=== PATIENT | male | born 1940 | race Caucasian/White ===

== ENCOUNTER 2017-10-23 15:39 | Inpatient (IN) ==
[2017-10-23] MEDS ORDERED: Piperacillin/Tazobactam 3.375 GM in 0.9 % Sodium Chloride Mini Bag 100 ML IVPB ONE (15:50)
[2017-10-23] MEDS ORDERED: Levofloxacin 750 MG/150 ML 750 MG/150 ML BAG IVPB ONE (15:50)
[2017-10-23] MEDS ORDERED: 0.9 % Sodium Chloride 1,000 ML IVC ONE (15:56)
[2017-10-23] MEDS ORDERED: Aspirin 81 MG TAB.CHEW PO STA (15:56)
[2017-10-23] MEDS ORDERED: Ondansetron 4 MG/2 ML VIAL IVP PRN (15:56)
[2017-10-23] MEDS ORDERED: Ipratropium/Albuterol Neb 3 ML IH ONE (15:57)
[2017-10-23] MEDS ORDERED: methylPREDNISolone 125 MG/2 ML VIAL IVP ONE (15:57)
--- NOTE | 2017-10-23 16:02 | Emergency Department Note ---
Disposition Clinical Impression: HCAP (healthcare-associated pneumonia), Hypoxia, COPD exacerbation, Hypercapnia Nausea & vomiting Qualifiers: Vomiting type: unspecified Vomiting Intractability: non-intractable Qualified Code(s): R11.2 - Nausea with vomiting, unspecified Disposition: Admitted As Inpatient Condition: Fair Time of Disposition: 17:38 SOB HPI - General Chief Complaint: ED Shortness of Breath/Dyspnea Stated Complaint: "fatigue,sob" Time Seen by Provider: 10/23/17 15:49 Nursing Notes Reviewed: Yes Vital Signs Reviewed: Yes - History of Present Illness Patient is a 77-year-old male who complains of difficulty in breathing worsening over the past 4 days with chest tightness. Patient is a history of COPD and was recently diagnosed with pneumonia 1 week ago during his visit with Dr. Mensah of pulmonology. Patient's stated that patient improved for a few days but then started to decline. He has had to increase his home O2 usage from 3 L which is his norm to 5 L. Patient presented to today was hypoxic with O2 sat of 83% on 3 L supplemental O2. Patient is a history of CABG, and recent prostate surgery 2 months ago. - Related Data Home Medications Medication Instructions Recorded Confirmed Atorvastatin [Lipitor] 40 mg PO DAILY 05/13/15 10/23/17 Carvedilol [Coreg] 25 mg PO BID 05/13/15 10/23/17 Furosemide [Lasix] 20 mg PO DAILY 05/13/15 10/23/17 Gabapentin [Neurontin] 600 mg PO HS 05/13/15 10/23/17 Glimepiride [Amaryl] 4 mg PO BID 05/13/15 10/23/17 Hydrocodone/Acetaminophen [[place] 1 tab PO Q8H PRN 05/13/15 10/23/17 7.5-325 Tablet] Losartan [Cozaar] 12.5 mg PO QMWF 05/13/15 10/23/17 Metformin HCl [Glucophage Xr] 500 mg PO BID 05/13/15 10/23/17 Omeprazole [PriLOSEC] 40 mg PO DAILY 05/13/15 10/23/17 amLODIPine [Norvasc] 5 mg PO DAILY 05/13/15 10/23/17 Oxygen 3 l NS AD 07/06/15 10/23/17 Albuterol Sulfate [Albuterol 2 puff IH Q4HR PRN 05/31/17 10/23/17 Inhaler] Budesonide Neb [Pulmicort Neb] 0.5 mg IH BIDR 05/31/17 10/23/17 Ferrous Sulfate [Iron] 325 mg PO DAILY 05/31/17 10/23/17 Arformoterol Tartrate [Brovana] 15 mcg IH BID 10/23/17 10/23/17 Guaifenesin [Mucinex] 1,200 mg PO BID 10/23/17 10/23/17 Allergies Allergy/AdvReac Type Severity Reaction Status Date / Time No Known Allergies Allergy Verified 10/23/17 15:49 All systems ED: reviewed and negative except as stated. Review of Systems: As Per HPI Constitutional: Reports: chills. Denies: fever ENT ED: Reports: congestion Cardiovascular: Denies: chest pain, palpitations Respiratory: Reports: cough, dyspnea Gastrointestinal: Reports: nausea, vomiting. Denies: abdominal pain Musculoskeletal: Denies: back pain Endocrine: Reports: fatigue Past Medical History - Past Medical History Attestation: Yes The following information was validated with the patient. Source: patient, nursing notes reviewed Medical history: Reports: arthritis, COPD, diabetes, GERD, hypertension, TIA Surgical history: Reports: coronary bypass (CABG) Psychiatric history: Reports: depression - Social History Smoking Status: Former smoker Smokeless Tobacco Status: No Alcohol use: Reports: none Drug use: Reports: none Physical Exam Vital Signs Temperature 98.0 F 10/23/17 15:41 Pulse Rate 86 10/23/17 15:41 Respiratory Rate 24 10/23/17 15:41 Blood Pressure 167/93 10/23/17 15:41 O2 Sat by Pulse Oximetry 83 10/23/17 15:41 Temperature 98.0 F 10/23/17 15:48 Pulse Rate 86 10/23/17 15:48 Respiratory Rate 24 10/23/17 15:48 Blood Pressure 167/93 10/23/17 15:48 O2 Sat by Pulse Oximetry 83 10/23/17 15:48 Oxygen Delivery Oxygen Delivery Nasal Cannula CONSTITUTIONAL: Ill almost toxic-appearing patient in acute distress being short of breath presents alert and wanted 3. Patient was placed on supplemental O2 6 L/m because of an O2 saturation of 83% on 3 L. O2 sats improved and currently 92% HEAD: Normocephalic; atraumatic EYES: PERRL, no scleral icterus NOSE: The nose is normal in appearance without rhinorrhea NECK: No JVD or distended neck veins RESP: Diminished lung sounds on the right and rhonchi and rales left lung base CARD: Regular rhythm, without murmurs, rub or gallop ABD: Non-distended; non-tender, soft, without rigidity, rebound or guarding,no pulsatile mass CHEST: No pain with palpation SKIN: Normal for age and race; warm and dry without diaphoresis ; no apparent lesions EXTREMITIES: Pulses are 2 plus and equal times 4 extremities, no peripheral edema or calf muscle pain Course - Reevaluation(s) Reevaluation #1: Lab called critical high PCO2 83.6 Time: 16:26 Time: 17:38 - Consultations Consultation #1: Dr. Carlson the hospitalist as accepted patient for admission in stable condition. Time: 17:38 Vital Signs Temperature 98.0 F 10/23/17 15:41 Pulse Rate 86 10/23/17 15:41 Respiratory Rate 24 10/23/17 15:41 Blood Pressure 167/93 10/23/17 15:41 O2 Sat by Pulse Oximetry 83 10/23/17 15:41 Temperature 98.0 F 10/23/17 15:48 Pulse Rate 70 10/23/17 17:48 Respiratory Rate 18 10/23/17 18:48 Blood Pressure 160/80 10/23/17 18:48 O2 Sat by Pulse Oximetry 96 10/23/17 17:48 Oxygen Delivery Oxygen Delivery Nasal Cannula Shortness of Breath/Dyspnea - [facility] Narrative Medical decision making narrative: Patient presents with hypoxia and difficulty in breathing and current COPD exacerbation from possible underlying pneumonia. Patient is currently a HCAP due to recent hospitalization back in July for surgery on his prostate. Patient has failed outpatient treatment on azithromycin, with worsening breathing issues today. Patient's O2 saturation improved as well as a breathing after DuoNeb therapy, and also received 125 IV methylprednisolone. Patient's VBG reflected hypercapnia with an increase in PCO2 greater than the allowable upper limit of normal or a bicarbonate of 45, current PCO2 is 85. The rest of patient's labs were clinically unremarkable for any elevation of WBC, elevation of creatinine. Chest x-ray appears to have worsening consolidation in left lower lung area when compared to previous chest x-ray per my interpretation of patient's x-ray. Read per radiology states: IMPRESSION: No definite acute abnormality. Borderline pulmonary vascular congestion. Patient was started on vancomycin, levofloxacin, and Zosyn IV to cover for a HCAP, with hypoxia and hypercapnia with COPD exacerbation. Patient symptoms have improved but is still not back to his baseline of 3 L via nasal cannula for which he uses at home. Is currently utilizing 6 L/m to maintain her O2 sat duration of 96%. Patient understands and agrees to treatment plan for admission. Dr. Carlson the hospitalist as accepted patient for admission in stable condition. - Lab Data Lab results reviewed: Yes I reviewed the patient's lab results. Lab results narrative: Short CBC 10/23/17 Range/Units 16:04 WBC 10.0 (4.3-11.1) K/mcL Hgb 13.6 (12.9-16.9) g/dL Hct 45.2 (37.5-50.1) % Plt Count 186 (140-400) K/mcL Neutrophils # 7.1 (1.6-8.9) K/mcL BMP 10/23/17 Range/Units 16:04 Sodium 145 (136-145) mEq/L Potassium 4.6 (3.5-5.1) mEq/L Chloride 97 L (98-107) mEq/L Carbon Dioxide 44 H* (23-29) mEq/L BUN 24 H (8-23) mg/dL Creatinine 1.28 (0.70-1.30) mg/dL Glucose 129 H (70-105) mg/dL Calcium 9.6 (8.6-10.3) mg/dL Cardiac Enzymes 10/23/17 Range/Units 16:04 Troponin I 0.03 (< 0.04) ng/mL Urine 10/23/17 Range/Units 16:04 Urine Color Yellow (Yellow) Urine Clarity Clear (Clear) Urine pH 6.5 (5.0-8.0) pH Units Ur Specific [place] 1.011 (1.010-1.025) Urine Protein Trace (Neg-Trace) mg/dL Urine Glucose (UA) Normal (Normal) mg/dL Result diagrams: 10/23/17 16:04 10/23/17 16:04 Lab Results 10/23/17 10/23/17 10/23/17 Range/Units 16:04 16:04 16:04 WBC 10.0 (4.3-11.1) K/mcL RBC 4.66 (4.19-5.50) M/mcL Hgb 13.6 (12.9-16.9) g/dL Hct 45.2 (37.5-50.1) % MCV 97.0 (83.0-100.0) fL MCH 29.2 (28.0-33.3) pg MCHC 30.1 L (31.6-35.5) g/dL RDW 12.5 (11.5-14.5) % Plt Count 186 (140-400) K/mcL MPV 10.8 (9.4-12.4) fL Immature Gran % 1.0 (0-4) % Seg Neutrophils % 71.2 % Lymphocytes % 12.4 % Monocytes % 9.9 % Eosinophils % 4.8 % Basophils % 0.7 % Neutrophils # 7.1 (1.6-8.9) K/mcL Lymphocytes # 1.2 (0.6-4.6) K/mcL Monocytes # 1.0 (0.0-1.3) K/mcL Eosinophils # 0.5 (0.0-0.6) K/mcL Basophils # 0.1 (0.0-0.2) K/mcL VBG pH (7.32-7.42) pH Units VBG pCO2 (41-51) mmHg VBG pO2 (25-50) mmHg VBG HCO3 (21-27) mEq/L Sodium 145 (136-145) mEq/L Potassium 4.6 (3.5-5.1) mEq/L Chloride 97 L (98-107) mEq/L Carbon Dioxide 44 H* (23-29) mEq/L BUN 24 H (8-23) mg/dL Creatinine 1.28 (0.70-1.30) mg/dL Est GFR ( Amer) > 60 (> 60) Est GFR (Non-Af Amer) 55 L (> 60) BUN/Creatinine Ratio 19 (6-26) Glucose 129 H (70-105) mg/dL Calculated Osmolality 306 H (280-300) Lactic Acid (0.5-2.2) mmol/L Calcium 9.6 (8.6-10.3) mg/dL Phosphorus 2.2 L (2.7-4.5) mg/dL Magnesium 1.4 L (1.6-2.6) mg/dL Troponin I 0.03 (< 0.04) ng/mL Urine Color Yellow (Yellow) Urine Clarity Clear (Clear) Urine pH 6.5 (5.0-8.0) pH Units Ur Specific [place] 1.011 (1.010-1.025) Urine Protein Trace (Neg-Trace) mg/dL Urine Glucose (UA) Normal (Normal) mg/dL Urine Ketones Negative (Negative) mg/dL Urine Blood Negative (Negative) Urine Nitrite Negative (Negative) Urine Bilirubin Negative (Negative) Urine Urobilinogen Normal (Normal) mg/dL Ur Leukocyte Esterase Negative (Negative) Urine Microscopic RBC 0-3 (0-3) per hpf Urine Microscopic WBC 0-3 (0-3) per hpf Ur Squamous Epith Cells None Seen (None-Few) per lpf Urine Bacteria None Seen (None-Few) per hpf Hyaline Casts None Seen (None-Few) per lpf Ur Culture Indicated? NO (NO) Person Notif of Crit 10/23/17 10/23/17 Range/Units 16:04 16:20 WBC (4.3-11.1) K/mcL RBC (4.19-5.50) M/mcL Hgb (12.9-16.9) g/dL Hct (37.5-50.1) % MCV (83.0-100.0) fL MCH (28.0-33.3) pg MCHC (31.6-35.5) g/dL RDW (11.5-14.5) % Plt Count (140-400) K/mcL MPV (9.4-12.4) fL Immature Gran % (0-4) % Seg Neutrophils % % Lymphocytes % % Monocytes % % Eosinophils % % Basophils % % Neutrophils # (1.6-8.9) K/mcL Lymphocytes # (0.6-4.6) K/mcL Monocytes # (0.0-1.3) K/mcL Eosinophils # (0.0-0.6) K/mcL Basophils # (0.0-0.2) K/mcL VBG pH 7.33 (7.32-7.42) pH Units VBG pCO2 85 H* (41-51) mmHg VBG pO2 81 H (25-50) mmHg VBG HCO3 45 H (21-27) mEq/L Sodium (136-145) mEq/L Potassium (3.5-5.1) mEq/L Chloride (98-107) mEq/L Carbon Dioxide (23-29) mEq/L BUN (8-23) mg/dL Creatinine (0.70-1.30) mg/dL Est GFR ( Amer) (> 60) Est GFR (Non-Af Amer) (> 60) BUN/Creatinine Ratio (6-26) Glucose (70-105) mg/dL Calculated Osmolality (280-300) Lactic Acid 1.2 (0.5-2.2) mmol/L Calcium (8.6-10.3) mg/dL Phosphorus (2.7-4.5) mg/dL Magnesium (1.6-2.6) mg/dL Troponin I (< 0.04) ng/mL Urine Color (Yellow) Urine Clarity (Clear) Urine pH (5.0-8.0) pH Units Ur Specific [place] (1.010-1.025) Urine Protein (Neg-Trace) mg/dL Urine Glucose (UA) (Normal) mg/dL Urine Ketones (Negative) mg/dL Urine Blood (Negative) Urine Nitrite (Negative) Urine Bilirubin (Negative) Urine Urobilinogen (Normal) mg/dL Ur Leukocyte Esterase (Negative) Urine Microscopic RBC (0-3) per hpf Urine Microscopic WBC (0-3) per hpf Ur Squamous Epith Cells (None-Few) per lpf Urine Bacteria (None-Few) per hpf Hyaline Casts (None-Few) per lpf Ur Culture Indicated? (NO) Person Notif of Crit DR GALVAN - Radiology Data Radiology results reviewed: Yes I reviewed the patient's radiology results. Chest X-Ray 10/23/17 15:51 IMPRESSION: No definite acute abnormality. Borderline pulmonary vascular congestion. D/ / Coy Curry MD / Coy Curry MD Interpreting Provider: Coy Curry MD - EKG Data EKG attestation: Yes I reviewed and interpreted this EKG. EKG results narrative: EKG taken to October 2017 1548 hrs. shows a sinus rhythm at a rate of 94 beats minute no acute ST elevations or depressions in any leads, no QRS widening or QT prolongation. When compared to previous EKG taken 09/15/2017, both EKGs are nonischemic
[2017-10-23 16:18] LABS: Basophils # 0.1 K/mcL (0.0-0.2); Basophils % 0.7 %; Eosinophils # 0.5 K/mcL (0.0-0.6); Eosinophils % 4.8 %; Hematocrit 45.2 % (37.5-50.1); Hemoglobin 13.6 g/dL (12.9-16.9); Lymphocytes # 1.2 K/mcL (0.6-4.6); Lymphocytes % 12.4 %; Mean Corpuscular HGB Conc 30.1 g/dL (31.6-35.5); Mean Corpuscular Hemoglobin 29.2 pg (28.0-33.3); Mean Platelet Volume 10.8 fL (9.4-12.4); Monocytes % 9.9 %; Neutrophils # 7.1 K/mcL (1.6-8.9); Platelet Count 186 K/mcL (140-400); Red Blood Count 4.66 M/mcL (4.19-5.50); Red Cell Distribution Width 12.5 % (11.5-14.5); Segmented Neutrophils % 71.2 %
[2017-10-23 16:21] LABS: Bilirubin,Urine Negative (Negative); Blood,Urine Negative (Negative); Clarity,Urine Clear (Clear); Color,Urine Yellow (Yellow); Glucose,Urine (UA) Normal (Normal); Ketones,Urine Negative (Negative); Leukocyte Esterase,Urine Negative (Negative); Nitrite,Urine Negative (Negative); PH,Urine 6.5 pH Units (5.0-8.0); Protein,Urine Trace mg/dL (Neg-Trace); Specific Gravity,Urine 1.011 (1.010-1.025); Urobilinogen,Urine Normal (Normal)
[2017-10-23 16:24] LABS: Bacteria,Urine None Seen per hpf (None-Few); Hyaline Casts,Urine None Seen per lpf (None-Few); RBC,Urine 0-3 per hpf (0-3); Squamous Epithelial Cell,Urine None Seen per lpf (None-Few); WBC,Urine 0-3 per hpf (0-3)
[2017-10-23 16:29] LABS: VBG HCO3 45 mEq/L (21-27); VBG PCO2 85 mmHg (41-51); VBG PH 7.33 pH Units (7.32-7.42); VBG PO2 81 mmHg (25-50)
[2017-10-23 16:43] LABS: Troponin I 0.03 ng/mL (< 0.04)
[2017-10-23 16:49] LABS: BUN/Creatinine Ratio 19 (6-26); Blood Urea Nitrogen 24 mg/dL (8-23); Calcium 9.6 mg/dL (8.6-10.3); Carbon Dioxide 44 mEq/L (23-29); Chloride 97 mEq/L (98-107); Glucose 129 mg/dL (70-105); Magnesium 1.4 mg/dL (1.6-2.6); Osmolality,Calculated 306 (280-300); Phosphorous 2.2 mg/dL (2.7-4.5); Potassium 4.6 mEq/L (3.5-5.1); Sodium 145 mEq/L (136-145); eGFR For African Americans > 60 (> 60); eGFR For Non-African Americans 55 (> 60)
--- NOTE | 2017-10-23 18:17 | Emergency Department Note ---
Disposition Clinical Impression: HCAP (healthcare-associated pneumonia), Hypoxia, COPD exacerbation, Hypercapnia Nausea & vomiting Qualifiers: Vomiting type: unspecified Vomiting Intractability: non-intractable Qualified Code(s): R11.2 - Nausea with vomiting, unspecified Disposition: Admitted As Inpatient Condition: Fair General Adult HPI - General Chief complaint: ED Shortness of Breath/Dyspnea Stated complaint: "fatigue,sob" Time Seen by Provider: 10/23/17 15:49 - History of Present Illness Pain Scale: 0 - Related Data Home Medications Medication Instructions Recorded Confirmed Atorvastatin [Lipitor] 40 mg PO DAILY 05/13/15 10/23/17 Carvedilol [Coreg] 25 mg PO BID 05/13/15 10/23/17 Furosemide [Lasix] 20 mg PO DAILY 05/13/15 10/23/17 Gabapentin [Neurontin] 600 mg PO HS 05/13/15 10/23/17 Glimepiride [Amaryl] 4 mg PO BID 05/13/15 10/23/17 Hydrocodone/Acetaminophen [[place] 1 tab PO Q8H PRN 05/13/15 10/23/17 7.5-325 Tablet] Losartan [Cozaar] 12.5 mg PO QMWF 05/13/15 10/23/17 Metformin HCl [Glucophage Xr] 500 mg PO BID 05/13/15 10/23/17 Omeprazole [PriLOSEC] 40 mg PO DAILY 05/13/15 10/23/17 amLODIPine [Norvasc] 5 mg PO DAILY 05/13/15 10/23/17 Oxygen 3 l NS AD 07/06/15 10/23/17 Albuterol Sulfate [Albuterol 2 puff IH Q4HR PRN 05/31/17 10/23/17 Inhaler] Budesonide Neb [Pulmicort Neb] 0.5 mg IH BIDR 05/31/17 10/23/17 Ferrous Sulfate [Iron] 325 mg PO DAILY 05/31/17 10/23/17 Arformoterol Tartrate [Brovana] 15 mcg IH BID 10/23/17 10/23/17 Guaifenesin [Mucinex] 1,200 mg PO BID 10/23/17 10/23/17 Allergies Allergy/AdvReac Type Severity Reaction Status Date / Time No Known Allergies Allergy Verified 10/23/17 15:49 Constitutional: Reports: chills. Denies: fever ENT ED: Reports: congestion Cardiovascular: Denies: chest pain, palpitations Respiratory: Reports: cough, dyspnea Gastrointestinal: Reports: nausea, vomiting. Denies: abdominal pain Musculoskeletal: Denies: back pain Endocrine: Reports: fatigue Past Medical History - Past Medical History Medical history: Reports: arthritis, COPD, diabetes, GERD, hypertension, TIA Surgical history: Reports: coronary bypass (CABG) Psychiatric history: Reports: depression - Social History Smoking Status: Former smoker Smokeless Tobacco Status: No Alcohol use: Reports: none Drug use: Reports: none Course Vital Signs Temperature 98.0 F 10/23/17 15:41 Pulse Rate 86 10/23/17 15:41 Respiratory Rate 24 10/23/17 15:41 Blood Pressure 167/93 10/23/17 15:41 O2 Sat by Pulse Oximetry 83 10/23/17 15:41 Temperature 98.0 F 10/23/17 15:48 Pulse Rate 70 10/23/17 17:48 Respiratory Rate 18 10/23/17 17:48 Blood Pressure 160/87 10/23/17 17:48 O2 Sat by Pulse Oximetry 96 10/23/17 17:48 Oxygen Delivery Oxygen Delivery Nasal Cannula Medical Decision Making - Lab Data Result diagrams: 10/23/17 16:04 10/23/17 16:04 Lab Results 10/23/17 10/23/17 10/23/17 Range/Units 16:04 16:04 16:04 WBC 10.0 (4.3-11.1) K/mcL RBC 4.66 (4.19-5.50) M/mcL Hgb 13.6 (12.9-16.9) g/dL Hct 45.2 (37.5-50.1) % MCV 97.0 (83.0-100.0) fL MCH 29.2 (28.0-33.3) pg MCHC 30.1 L (31.6-35.5) g/dL RDW 12.5 (11.5-14.5) % Plt Count 186 (140-400) K/mcL MPV 10.8 (9.4-12.4) fL Immature Gran % 1.0 (0-4) % Seg Neutrophils % 71.2 % Lymphocytes % 12.4 % Monocytes % 9.9 % Eosinophils % 4.8 % Basophils % 0.7 % Neutrophils # 7.1 (1.6-8.9) K/mcL Lymphocytes # 1.2 (0.6-4.6) K/mcL Monocytes # 1.0 (0.0-1.3) K/mcL Eosinophils # 0.5 (0.0-0.6) K/mcL Basophils # 0.1 (0.0-0.2) K/mcL VBG pH (7.32-7.42) pH Units VBG pCO2 (41-51) mmHg VBG pO2 (25-50) mmHg VBG HCO3 (21-27) mEq/L Sodium 145 (136-145) mEq/L Potassium 4.6 (3.5-5.1) mEq/L Chloride 97 L (98-107) mEq/L Carbon Dioxide 44 H* (23-29) mEq/L BUN 24 H (8-23) mg/dL Creatinine 1.28 (0.70-1.30) mg/dL Est GFR ( Amer) > 60 (> 60) Est GFR (Non-Af Amer) 55 L (> 60) BUN/Creatinine Ratio 19 (6-26) Glucose 129 H (70-105) mg/dL Calculated Osmolality 306 H (280-300) Lactic Acid (0.5-2.2) mmol/L Calcium 9.6 (8.6-10.3) mg/dL Phosphorus 2.2 L (2.7-4.5) mg/dL Magnesium 1.4 L (1.6-2.6) mg/dL Troponin I 0.03 (< 0.04) ng/mL Urine Color Yellow (Yellow) Urine Clarity Clear (Clear) Urine pH 6.5 (5.0-8.0) pH Units Ur Specific [place] 1.011 (1.010-1.025) Urine Protein Trace (Neg-Trace) mg/dL Urine Glucose (UA) Normal (Normal) mg/dL Urine Ketones Negative (Negative) mg/dL Urine Blood Negative (Negative) Urine Nitrite Negative (Negative) Urine Bilirubin Negative (Negative) Urine Urobilinogen Normal (Normal) mg/dL Ur Leukocyte Esterase Negative (Negative) Urine Microscopic RBC 0-3 (0-3) per hpf Urine Microscopic WBC 0-3 (0-3) per hpf Ur Squamous Epith Cells None Seen (None-Few) per lpf Urine Bacteria None Seen (None-Few) per hpf Hyaline Casts None Seen (None-Few) per lpf Ur Culture Indicated? NO (NO) Person Notif of Crit 10/23/17 10/23/17 Range/Units 16:04 16:20 WBC (4.3-11.1) K/mcL RBC (4.19-5.50) M/mcL Hgb (12.9-16.9) g/dL Hct (37.5-50.1) % MCV (83.0-100.0) fL MCH (28.0-33.3) pg MCHC (31.6-35.5) g/dL RDW (11.5-14.5) % Plt Count (140-400) K/mcL MPV (9.4-12.4) fL Immature Gran % (0-4) % Seg Neutrophils % % Lymphocytes % % Monocytes % % Eosinophils % % Basophils % % Neutrophils # (1.6-8.9) K/mcL Lymphocytes # (0.6-4.6) K/mcL Monocytes # (0.0-1.3) K/mcL Eosinophils # (0.0-0.6) K/mcL Basophils # (0.0-0.2) K/mcL VBG pH 7.33 (7.32-7.42) pH Units VBG pCO2 85 H* (41-51) mmHg VBG pO2 81 H (25-50) mmHg VBG HCO3 45 H (21-27) mEq/L Sodium (136-145) mEq/L Potassium (3.5-5.1) mEq/L Chloride (98-107) mEq/L Carbon Dioxide (23-29) mEq/L BUN (8-23) mg/dL Creatinine (0.70-1.30) mg/dL Est GFR ( Amer) (> 60) Est GFR (Non-Af Amer) (> 60) BUN/Creatinine Ratio (6-26) Glucose (70-105) mg/dL Calculated Osmolality (280-300) Lactic Acid 1.2 (0.5-2.2) mmol/L Calcium (8.6-10.3) mg/dL Phosphorus (2.7-4.5) mg/dL Magnesium (1.6-2.6) mg/dL Troponin I (< 0.04) ng/mL Urine Color (Yellow) Urine Clarity (Clear) Urine pH (5.0-8.0) pH Units Ur Specific [place] (1.010-1.025) Urine Protein (Neg-Trace) mg/dL Urine Glucose (UA) (Normal) mg/dL Urine Ketones (Negative) mg/dL Urine Blood (Negative) Urine Nitrite (Negative) Urine Bilirubin (Negative) Urine Urobilinogen (Normal) mg/dL Ur Leukocyte Esterase (Negative) Urine Microscopic RBC (0-3) per hpf Urine Microscopic WBC (0-3) per hpf Ur Squamous Epith Cells (None-Few) per lpf Urine Bacteria (None-Few) per hpf Hyaline Casts (None-Few) per lpf Ur Culture Indicated? (NO) Person Notif of Crit DR GALVAN Attestation Statement - Attestation Attestation: I examined this patient and my medical decision-making was reviewed with the Resident Physician. I agree with the documented findings, disposition and treatment plan as described except to the extent set forth below. Pt recently discharged with CXR finding suggestive of early pneumonia. High risk for drug-resistant bacteria, agree with broad spectrum approach pending cultures. Meets neither SIRS nor qSOFA criteria for sepsis. Dyspnea significantly improved with nebulizers. Pt has chest tightness that is present with every one of his COPD exacerbations, identical to previous symptoms, nothing different about it today. He can't recall a COPD exacerbation without chest tightness, and he says this tightness feels nothing like the discomfort he has felt when he has had angina/heart attacks in the past.
[2017-10-23] MEDS ORDERED: Ipratropium/Albuterol Neb 3 ML IH PRN (18:53)
[2017-10-23] MEDS ORDERED: *HR* HYDROcodone/Acet 7.5/325 mg TABLET PO PRN (18:53)
[2017-10-23] MEDS ORDERED: Dextrose Gel 15 GM/37.5 ML TUBE PO PRN ×4 (18:54)
[2017-10-23] MEDS ORDERED: *HR* Dextrose 50 % in Water (Syg) 50 ML SYRINGE IVP PRN (18:54)
[2017-10-23] MEDS ORDERED: D5% in Water 1,000 ML IVC PRN (18:54)
[2017-10-23] MEDS ORDERED: Naloxone 0.4 MG/ML INJ IVP PRN (18:57)
--- NOTE | 2017-10-23 19:01 | Internal Med History&Physical ---
Date of Encounter: 10/23/17 Time of Encounter: 19:10 Internal Medicine - H&P: HPI Chief complaint: Shortness of breath History of present illness: Mr. Aponte is a 77 year old male history of COPD on 3 L nasal cannula, diabetes2 , hypertension, CAD who presents with progressive shortness of breath, failed outpatient oral regimen. Admitted for COPD exacerbation with possible concern of pneumonia by the ED. Due to progressive shortness of breath worse with exertion, improved with rest, he has needed increased oxygen from 3 L to 5 L at home. He quit smoking 3 years ago. He gets winded around the house. Described low energy. Increase somnolent. In some subjective chills. He saw Dr. Cuevas this past Saturday and was started on steroids and antibiotics to no improvement. Given these, he presents to the ER. EKG personally reviewed with rate 94, normal sinus rhythm FINDINGS: Borderline pulmonary vasculature is congested. Minimal patchy atelectasis at the lung bases is noted, greater on the left. Heart and mediastinal contours stable. Previous midline sternotomy noted. No pneumothorax. No free air. XR/XR chest 1V portable IMPRESSION: No definite acute abnormality. Borderline pulmonary vascular congestion. Past Med Surg Social Fam HX - Past Medical History Medical history: arthritis, COPD, diabetes, GERD, hypertension, TIA Psychiatric history: depression - Past Surgical History Surgical History: coronary bypass (CABG) - Social History Smoking Status: Former smoker Smokeless Tobacco Status: No Alcohol use: none Drug use: none - Family History Father Adopted: No Living Status: Hx Family Cardiac Disorders: Yes Hx Family Respiratory Disorders: Yes Mother Adopted: No Living Status: Hx Family Cardiac Disorders: Yes Hx Family Respiratory Disorders: Yes Hx Family Cancer: Yes Internal Medicine - H&P: Meds Atorvastatin [Lipitor] 40 mg PO DAILY 05/13/15 [History] Carvedilol [Coreg] 25 mg PO BID 05/13/15 [History] Furosemide [Lasix] 20 mg PO DAILY 05/13/15 [History] Gabapentin [Neurontin] 600 mg PO HS 05/13/15 [History] Glimepiride [Amaryl] 4 mg PO BID 05/13/15 [History] Hydrocodone/Acetaminophen [[place] 7.5-325 Tablet] 1 tab PO Q8H PRN 05/13/15 [ History] Losartan [Cozaar] 12.5 mg PO QMWF 05/13/15 [History] Metformin HCl [Glucophage Xr] 500 mg PO BID 05/13/15 [History] Omeprazole [PriLOSEC] 40 mg PO DAILY 05/13/15 [History] amLODIPine [Norvasc] 5 mg PO DAILY 05/13/15 [History] Oxygen 3 l NS AD 07/06/15 [History] Albuterol Sulfate [Albuterol Inhaler] 2 puff IH Q4HR PRN 05/31/17 [History] Budesonide Neb [Pulmicort Neb] 0.5 mg IH BIDR 05/31/17 [History] Ferrous Sulfate [Iron] 325 mg PO DAILY 05/31/17 [History] Arformoterol Tartrate [Brovana] 15 mcg IH BID 10/23/17 [History] Guaifenesin [Mucinex] 1,200 mg PO BID 10/23/17 [History] 3 Allergy/AdvReac Type Severity Reaction Status Date / Time No Known Allergies Allergy Verified 10/23/17 15:49 All Systems PM: A 10-system review of systems was performed and is negative for pertinent findings except as documented above in the HPI. - Constitutional Vitals: Temp Pulse Resp BP Pulse Ox 98.0 F 70 18 160/80 96 10/23/17 15:48 10/23/17 17:48 10/23/17 18:48 10/23/17 18:48 10/23/17 17:48 Exam: General - AAO x 3 Psych - Appropriate affect/speech. No agitation Eyes - MADISYN. Eye lids intact. No scleral icterus Heart - Sinus. RRR. S1 and S2 present. No added HS/murmurs appreciated. No elevated JVD appreciated. Lung - decreased air entry b/l, No crackles, scant wheezes appreciated GI - Soft, non-tender. No hepatosplenomegaly/ascites. BS+ - No CVA/suprapubic tenderness or palpable bladder distension Skin - Intact. No rash/petechiae/ecchymosis. Trace bilateral lower extremity edema Internal Med - H&P Results - Labs CBC & Chem 7: 10/23/17 16:04 10/23/17 16:04 - Assessment and plan (1) COPD exacerbation Current Visit: Yes Status: Acute Assessment and plan: IV steroids, IV Levaquin, duonebs Serologies, RVP Uses 3 L nasal cannula at baseline at home (2) PNA (pneumonia) Current Visit: Yes Status: Acute Assessment and plan: The ER was concerned for pneumonia that is refractory to treatment.Reviewed chest x-ray in the ER with no definite consolidation We will start IV Levaquin for acute COPD exacerbation for now pending CT chest without contrast for definitive clarification whether he has a pneumonia We will send RVP, serologies Qualifiers: Pneumonia type: due to unspecified organism Lung location: unspecified part of lung Qualified Code(s): J18.9 - Pneumonia, unspecified organism (3) Diabetes Current Visit: No Status: Chronic Assessment and plan: We will hold metformin, continue sulfonylurea, add insulin sliding scale. We will adjust insulin sliding scale with anticipated hyperglycemia on steroids Qualifiers: Diabetes mellitus intermediate accountant insulin use: without intermediate accountant use Chronic kidney disease stage: stage 2 (mild) Qualified Code(s): E08.22 - Diabetes mellitus due to underlying condition with diabetic chronic kidney disease; N18.2 - Chronic kidney disease, stage 2 (mild); N18.2 - Chronic kidney disease, stage 2 (mild) (4) HTN (hypertension) Current Visit: Yes Status: Acute Assessment and plan: continue med Qualifiers: Hypertension type: essential hypertension Qualified Code(s): I10 - Essential (primary) hypertension - Time Spent With Patient Total time spent is greater than 50% in coordination of care (as documented) at patient's floor/unit and/or counseling patient:
[2017-10-23] MEDS: Gabapentin 300 MG CAPSULE PO SCH (20:30)
[2017-10-23] MEDS: Insulin LISPRO 300 UNITS/3 ML VIAL SQ SCH (20:30)
[2017-10-23] MEDS ORDERED: Ipratropium/Albuterol Neb 3 ML IH SCH (21:00)
[2017-10-23] MEDS ORDERED: ARFORMOTEROL TARTRATE 15 MCG IH SCH (21:00)
[2017-10-23] MEDS: Ipratropium/Albuterol Neb 3 ML IH SCH (22:15)
[2017-10-23] MEDS: Budesonide Neb 0.5 MG/2 ML IH SCH (22:15)
[2017-10-23] MEDS ORDERED: Levofloxacin 500 MG/100 ML 500 MG/100 ML BAG IVPB SCH (23:00)
[2017-10-23] MEDS: MethylPREDNISolone 40 MG/ML VIAL IVP SCH (23:57)
[2017-10-24 03:41] LABS: Basophils % 0.1 %; Hematocrit 39.8 % (37.5-50.1); Hemoglobin 12.3 g/dL (12.9-16.9); Immature Granulocytes % 0.6 % (0-4); Lymphocytes # 0.4 K/mcL (0.6-4.6); Mean Corpuscular HGB Conc 30.9 g/dL (31.6-35.5); Mean Corpuscular Hemoglobin 29.4 pg (28.0-33.3); Mean Corpuscular Volume 95.2 fL (83.0-100.0); Mean Platelet Volume 10.7 fL (9.4-12.4); Monocytes # 0.1 K/mcL (0.0-1.3); Monocytes % 0.8 %; Neutrophils # 7.3 K/mcL (1.6-8.9); Platelet Count 143 K/mcL (140-400); Red Blood Count 4.18 M/mcL (4.19-5.50); Red Cell Distribution Width 12.2 % (11.5-14.5); Segmented Neutrophils % 93.5 %
[2017-10-24] MEDS: Ipratropium/Albuterol Neb 3 ML IH SCH ×4 (04:12→22:07)
[2017-10-24 04:14] LABS: Alanine Aminotransferase 17 Units/L (7-52); Albumin 3.7 g/dL (3.5-5.7); Albumin/Globulin Ratio 1.5 (1.1-2.2); Alkaline Phosphatase 79 Units/L (34-104); Aspartate Amino Transferase 13 Units/L (13-39); BUN/Creatinine Ratio 25 (6-26); Bilirubin,Total 0.3 mg/dL (0.3-1.0); Blood Urea Nitrogen 32 mg/dL (8-23); Calcium 9.1 mg/dL (8.6-10.3); Carbon Dioxide 40 mEq/L (23-29); Chloride 96 mEq/L (98-107); Globulin 2.4 g/dL (2.4-3.5); Glucose 270 mg/dL (70-105); Osmolality,Calculated 306 (280-300); Sodium 140 mEq/L (136-145); Total Protein 6.1 g/dL (6.4-8.9); eGFR For African Americans > 60 (> 60); eGFR For Non-African Americans 56 (> 60)
[2017-10-24] MEDS: MethylPREDNISolone 40 MG/ML VIAL IVP SCH ×3 (05:24→18:20)
[2017-10-24] MEDS: *HR* Enoxaparin 40 MG/0.4 ML SYRINGE SQ SCH (05:24)
[2017-10-24] MEDS: Insulin LISPRO 300 UNITS/3 ML VIAL SQ SCH ×4 (07:50→21:50)
[2017-10-24] MEDS: Furosemide 20 MG TABLET PO SCH (07:50)
[2017-10-24] MEDS: amLODIPine 5 MG TABLET PO SCH (07:51)
[2017-10-24] MEDS: *HR* Glimepiride 4 MG TABLET PO SCH ×2 (07:51→18:27)
[2017-10-24] MEDS: Budesonide Neb 0.5 MG/2 ML IH SCH ×2 (11:14→22:07)
--- NOTE | 2017-10-24 14:08 | Internal Med Progress Note ---
Date of Encounter: 10/24/17 Time of Encounter: 11:00 - Assessment and plan (1) PNA (pneumonia) Current Visit: Yes Status: Acute Assessment and plan: RLL PNA mostly bacterial cont empirical abx Levaquin will f/u on sputum cx Qualifiers: Pneumonia type: due to unspecified organism Lung location: unspecified part of lung Qualified Code(s): J18.9 - Pneumonia, unspecified organism (2) COPD exacerbation Current Visit: Yes Status: Acute Assessment and plan: Improving will start tapering steoirds cont Duoneb Cont O2 (3) Acute on chronic respiratory failure with hypoxia Current Visit: Yes Status: Acute Assessment and plan: improving cont above care (4) Chronic respiratory failure with hypercapnia Current Visit: Yes Status: Acute Assessment and plan: reviewed his ABG from 10/16/17 and VBG from last night he does have chronic hypercapneic resp failure does get benefit with BiPAP use at night time will do over night Bipap study (5) Diabetes Current Visit: No Status: Chronic Assessment and plan: Slightly uncontrolled due to steroids Cont ISS Qualifiers: Diabetes mellitus long chain beamer insulin use: without long chain beamer use Chronic kidney disease stage: stage 2 (mild) Qualified Code(s): E08.22 - Diabetes mellitus due to underlying condition with diabetic chronic kidney disease; N18.2 - Chronic kidney disease, stage 2 (mild); N18.2 - Chronic kidney disease, stage 2 (mild) (6) HTN (hypertension) Current Visit: Yes Status: Acute Assessment and plan: Stable with home meds Qualifiers: Hypertension type: essential hypertension Qualified Code(s): I10 - Essential (primary) hypertension - Time Spent With Patient Total time spent is greater than 50% in coordination of care (as documented) at patient's floor/unit and/or counseling patient: - Subjective Interval history: Mr. Aponte is a 77 year old male history of COPD on 3 L nasal cannula, diabetes2 , hypertension, CAD who presented to ER with progressive shortness of breath, failed outpatient oral regimen. Pt stated he has been having SOB, Cough with expectoration for 5-7 days , he was taken PO abx and steroid as an out pt, felt better for a couple of days, however since last 2 days his SOB got worsened. Denied any CP now. He was required 5 lit O2 last night, however now he is at 3 lit O2. Still has moderate SOB and BURNS. - Constitutional Vitals: Temp Pulse Resp BP Pulse Ox 97.6 F 73 17 152/80 87 10/24/17 11:58 10/24/17 11:58 10/24/17 11:58 10/24/17 11:58 10/24/17 11:58 General appearance: Present: A&O X 3, no acute distress, answers questions appropriately - Head Head exam: Present: atraumatic, normal inspection - Neck Neck exam general surgery: Present: supple - Respiratory Respiratory exam: Present: decreased breath sounds, wheezes (moderate). Absent : rales, respiratory distress, rhonchi - Cardiovascular Cardiovascular exam: Present: +S1, +S2. Absent: systolic murmur, tachycardia - GI/Abdominal GI/Abdominal exam: Present: normal bowel sounds, soft. Absent: rebound, rigid, tenderness - Extremities Exam Extremities exam: Absent: calf tenderness, pedal edema, tenderness - Back Exam Back exam: Absent: CVA tenderness (L), CVA tenderness (R) - Neurological Exam Neurological exam: Present: alert, oriented X3 - Psychiatric Psychiatric exam: Present: normal affect, normal mood Internal Medicine: Result - Labs CBC & Chem 7: 10/24/17 03:11 10/24/17 03:11 Labs: Short CBC 10/24/17 Range/Units 03:11 WBC 7.8 (4.3-11.1) K/mcL Hgb 12.3 L (12.9-16.9) g/dL Hct 39.8 (37.5-50.1) % Plt Count 143 (140-400) K/mcL Neutrophils # 7.3 (1.6-8.9) K/mcL BMP 10/24/17 03:11 Sodium 140 Potassium 5.0 Chloride 96 L Carbon Dioxide 40 H* BUN 32 H Creatinine 1.26 Glucose 270 H Calcium 9.1 Liver Function 10/24/17 Range/Units 03:11 Total Bilirubin 0.3 (0.3-1.0) mg/dL AST 13 (13-39) Units/L ALT 17 (7-52) Units/L Alkaline Phosphatase 79 (34-104) Units/L Albumin 3.7 (3.5-5.7) g/dL Consult Discharge Plan - Plan Referrals: Miles Schaeffer [Primary Care Provider] -
--- NOTE | 2017-10-24 16:32 | Electrocardiograph Report ---
[place] [id number] Test Date: 2017-10-23 Pat Name: Aniket Aponte Department: 103 Room: 2A16 Gender: M Classified Advertising Manager: CARLOS ENRIQUE : 1940 Requested By: Jorge Hopson Order Number: [id number] Reading MD: Madeline Montoya Measurements Intervals [place] Rate: 94 P: 31 MS: 137 QRS: -26 QRSD: 111 T: 88 QT: 338 QTc: 389 Interpretive Statements SINUS RHYTHM MODERATE INTRAVENTRICULAR CONDUCTION DELAY [105+ ms QRS DURATION, 80+ ms Q/S IN V1/V2, NO Q AND 60+ ms R IN I/aVL/V5/V6] NONSPECIFIC ST & T-WAVE ABNORMALITY Electronically Signed On 10-24-2017 16:30:28 EDT by Madeline Montoya
[2017-10-24] MEDS: Levofloxacin 750 MG/150 ML 750 MG/150 ML BAG IVPB SCH (20:01)
[2017-10-24] MEDS: Gabapentin 300 MG CAPSULE PO SCH (20:01)
[2017-10-24] MEDS ORDERED: Levofloxacin 500 MG/100 ML 500 MG/100 ML BAG IVPB SCH (21:00)
[2017-10-25] MEDS: Ipratropium/Albuterol Neb 3 ML IH SCH ×4 (04:00→22:14)
[2017-10-25] MEDS: *HR* Enoxaparin 40 MG/0.4 ML SYRINGE SQ SCH (05:51)
[2017-10-25] MEDS: MethylPREDNISolone 40 MG/ML VIAL IVP SCH (05:52)
[2017-10-25 06:00] LABS: Basophils % 0.1 %; Hematocrit 38.4 % (37.5-50.1); Hemoglobin 12.3 g/dL (12.9-16.9); Immature Granulocytes % 0.7 % (0-4); Lymphocytes # 0.6 K/mcL (0.6-4.6); Lymphocytes % 4.2 %; Mean Corpuscular Hemoglobin 28.9 pg (28.0-33.3); Mean Corpuscular Volume 90.4 fL (83.0-100.0); Mean Platelet Volume 10.8 fL (9.4-12.4); Monocytes # 0.6 K/mcL (0.0-1.3); Monocytes % 4.7 %; Platelet Count 160 K/mcL (140-400); Red Blood Count 4.25 M/mcL (4.19-5.50); Red Cell Distribution Width 12.3 % (11.5-14.5); Segmented Neutrophils % 90.3 %
[2017-10-25 06:05] LABS: BUN/Creatinine Ratio 27 (6-26); Blood Urea Nitrogen 38 mg/dL (8-23); Calcium 9.6 mg/dL (8.6-10.3); Carbon Dioxide 41 mEq/L (23-29); Chloride 95 mEq/L (98-107); Glucose 192 mg/dL (70-105); Osmolality,Calculated 302 (280-300); Potassium 4.9 mEq/L (3.5-5.1); Sodium 139 mEq/L (136-145); eGFR For African Americans > 60 (> 60); eGFR For Non-African Americans 50 (> 60)
[2017-10-25] MEDS: Furosemide 20 MG TABLET PO SCH (08:24)
[2017-10-25] MEDS: *HR* Glimepiride 4 MG TABLET PO SCH ×2 (08:24→17:33)
[2017-10-25] MEDS: amLODIPine 5 MG TABLET PO SCH (08:25)
[2017-10-25] MEDS: Insulin LISPRO 300 UNITS/3 ML VIAL SQ SCH ×4 (08:40→20:46)
[2017-10-25] MEDS: Budesonide Neb 0.5 MG/2 ML IH SCH ×2 (10:48→22:14)
--- NOTE | 2017-10-25 13:21 | Internal Med Progress Note ---
Date of Encounter: 10/25/17 Time of Encounter: 10:40 - Assessment and plan (1) PNA (pneumonia) Current Visit: Yes Status: Acute Assessment and plan: RLL PNA mostly bacterial cont empirical abx Levaquin will f/u on sputum cx Qualifiers: Pneumonia type: due to unspecified organism Lung location: unspecified part of lung Qualified Code(s): J18.9 - Pneumonia, unspecified organism (2) COPD exacerbation Current Visit: Yes Status: Acute Assessment and plan: Improving Cont tapering steoirds cont Duoneb Cont O2 (3) Acute on chronic respiratory failure with hypoxia Current Visit: Yes Status: Acute Assessment and plan: improving cont above care (4) Chronic respiratory failure with hypercapnia Current Visit: Yes Status: Acute Assessment and plan: reviewed his ABG from 10/16/17 and VBG he does have chronic hypercapneic resp failure does get benefit with BiPAP use at night time Last night pulse ox study was inconclusive so will repeat the test again today Informed the RT and Nursing staff about the instructions (5) Diabetes Current Visit: No Status: Chronic Assessment and plan: Slightly uncontrolled due to steroids Cont ISS Qualifiers: Diabetes mellitus bed bug exterminator insulin use: without bed bug exterminator use Chronic kidney disease stage: stage 2 (mild) Qualified Code(s): E08.22 - Diabetes mellitus due to underlying condition with diabetic chronic kidney disease; N18.2 - Chronic kidney disease, stage 2 (mild); N18.2 - Chronic kidney disease, stage 2 (mild) (6) HTN (hypertension) Current Visit: Yes Status: Acute Assessment and plan: Stable with home meds Qualifiers: Hypertension type: essential hypertension Qualified Code(s): I10 - Essential (primary) hypertension - Time Spent With Patient Total time spent is greater than 50% in coordination of care (as documented) at patient's floor/unit and/or counseling patient: - Subjective Interval history: Mr. Aponte is a 77 year old male history of COPD on 3 L nasal cannula, diabetes2 , hypertension, CAD who presented to ER with progressive shortness of breath, failed outpatient oral regimen. Pt stated he has been having SOB, Cough with expectoration for 5-7 days , he was taken PO abx and steroid as an out pt, felt better for a couple of days, however since last 2 days his SOB got worsened. Denied any CP now.Currently on 2 lit O2. Overall feels better. Still has some mild SOB and BURNS - Constitutional Vitals: Temp Pulse Resp BP Pulse Ox 97.9 F 70 17 155/76 93 10/25/17 11:06 10/25/17 11:06 10/25/17 11:06 10/25/17 11:06 10/25/17 11:06 General appearance: Present: A&O X 3, no acute distress, answers questions appropriately - Head Head exam: Present: atraumatic, normal inspection - Neck Neck exam general surgery: Present: supple - Respiratory Respiratory exam: Present: decreased breath sounds, wheezes (moderate). Absent : rales, respiratory distress, rhonchi - Cardiovascular Cardiovascular exam: Present: RRR, +S1, +S2. Absent: tachycardia - GI/Abdominal GI/Abdominal exam: Present: normal bowel sounds, soft. Absent: rebound, rigid, tenderness - Extremities Exam Extremities exam: Absent: calf tenderness, pedal edema, tenderness - Back Exam Back exam: Absent: CVA tenderness (L), CVA tenderness (R) - Neurological Exam Neurological exam: Present: alert, oriented X3 - Psychiatric Psychiatric exam: Present: normal affect, normal mood Internal Medicine: Result - Labs CBC & Chem 7: 10/25/17 05:17 10/25/17 05:17 Labs: Short CBC 10/25/17 Range/Units 05:17 WBC 13.3 H D (4.3-11.1) K/mcL Hgb 12.3 L (12.9-16.9) g/dL Hct 38.4 (37.5-50.1) % Plt Count 160 (140-400) K/mcL Neutrophils # 12.0 H (1.6-8.9) K/mcL BMP 10/25/17 05:17 Sodium 139 Potassium 4.9 Chloride 95 L Carbon Dioxide 41 H* BUN 38 H Creatinine 1.39 H Glucose 192 H Calcium 9.6 Consult Discharge Plan - Plan Referrals: Miles Schaeffer [Primary Care Provider] -
[2017-10-25] MEDS ORDERED: Saline Nasal Spray 44 ML BOTTLE NS PRN (15:53)
[2017-10-25] MEDS: predniSONE 20 MG TABLET PO SCH (17:37)
[2017-10-25] MEDS: Levofloxacin 750 MG/150 ML 750 MG/150 ML BAG IVPB SCH (20:54)
[2017-10-25] MEDS: Gabapentin 300 MG CAPSULE PO SCH (20:55)
[2017-10-26] MEDS: Ipratropium/Albuterol Neb 3 ML IH SCH ×2 (04:42→09:56)
[2017-10-26] MEDS: *HR* Enoxaparin 40 MG/0.4 ML SYRINGE SQ SCH (05:15)
[2017-10-26 06:25] LABS: ABG Base Excess 12 mEq/L (-2 to 3); ABG HCO3 36 mEq/L (21-27); ABG Oxygen Saturation 94 % (95-98); ABG PCO2 43 mmHg (35-45); ABG PH 7.53 pH Units (7.32-7.45); ABG PO2 62 mmHg (85-104); ABG TCO2 37 mEq/L (20-26)
[2017-10-26 07:53] LABS: Adenovirus Not Detected (Not Detect); Bordetella Pertussis Not Detected (Not Detect); Chlamydophila pneumoniae Not Detected (Not Detect); Coronavirus 229E Not Detected (Not Detect); Coronavirus HKU1 Not Detected (Not Detect); Coronavirus NL63 Not Detected (Not Detect); Coronavirus OC43 Not Detected (Not Detect); Human Metapneumovirus Not Detected (Not Detect); Human Rhinovirus/Enterovirus Not Detected (Not Detect); Influenza A Subtype 2009 H1 Not Detected (Not Detect); Influenza A Untypeable Not Detected (Not Detect); Influenza B Not Detected (Not Detect); Mycoplasma pneumoniae Not Detected (Not Detect); Parainfluenza Virus 1 Not Detected (Not Detect); Parainfluenza Virus 2 Not Detected (Not Detect); Parainfluenza Virus 3 Not Detected (Not Detect); Parainfluenza Virus 4 Not Detected (Not Detect); Respiratory Syncytial Virus Not Detected (Not Detect)
[2017-10-26] MEDS: Insulin LISPRO 300 UNITS/3 ML VIAL SQ SCH ×2 (07:56→11:56)
[2017-10-26] MEDS: *HR* Glimepiride 4 MG TABLET PO SCH (07:57)
[2017-10-26] MEDS: predniSONE 20 MG TABLET PO SCH (07:57)
[2017-10-26] MEDS: Furosemide 20 MG TABLET PO SCH (07:57)
[2017-10-26] MEDS: amLODIPine 5 MG TABLET PO SCH (07:57)
--- NOTE | 2017-10-26 08:27 | Discharge Summary ---
- NOTES TO OUTPATIENT PROVIDER Notes to Outpatient Provider: f/u with PCP in one week. Need to see roofer helper in 1-2 weeks.. Please talk to your PCP. Cont using BiPAP at night time Orders not resulted at time of discharge: Pending orders 10/26/17 00:41 ABG [Arterial Blood Gas] AM 0400 Date of Encounter: 10/26/17 Time of Encounter: 08:23 - Discharge Diagnosis (1) PNA (pneumonia) Priority: Primary Status: Acute Qualifiers: Pneumonia type: due to unspecified organism Lung location: unspecified part of lung Qualified Code(s): J18.9 - Pneumonia, unspecified organism (2) COPD exacerbation Priority: Primary Status: Acute (3) Acute on chronic respiratory failure with hypoxia Priority: Primary Status: Acute (4) Chronic respiratory failure with hypercapnia Priority: Secondary Status: Acute (5) Diabetes Priority: Secondary Status: Chronic Qualifiers: Diabetes mellitus joint terminal attack controller insulin use: without joint terminal attack controller use Chronic kidney disease stage: stage 2 (mild) Qualified Code(s): E08.22 - Diabetes mellitus due to underlying condition with diabetic chronic kidney disease; N18.2 - Chronic kidney disease, stage 2 (mild); N18.2 - Chronic kidney disease, stage 2 (mild) (6) HTN (hypertension) Priority: Secondary Status: Acute Qualifiers: Hypertension type: essential hypertension Qualified Code(s): I10 - Essential (primary) hypertension Hospital course: Mr. Aponte is a 77 year old male history of COPD on 3 L nasal cannula, diabetes2 , hypertension, CAD who presented to ER with progressive shortness of breath, failed outpatient oral regimen. Pt stated he has been having SOB, Cough with expectoration for 5-7 days , he was taken PO abx and steroid as an out pt, felt better for a couple of days, however since last 2 days his SOB got worsened. Pt was admitted here for his COPD exacerbation, acute on chronic hypoxic resp failure. he was started on high dose IV steroids and empirical abx. His symptoms started improving slowly. He does have chronic hypercapneic resp failure, he would get benefit with NIPPV BiPAP. So we did over night pulse oxy study and he does qualify for BiPAP. SW / Nursing staff working on to arrange BiPAP for him to go home. So will dc him home to in sable condition. Also will do ambulating pulse oxy study before he leaves. - Time Spent with Patient Total time spent providing and/or coordinating discharge services: - Discharge Medications Prescriptions: Levofloxacin [Levaquin] 500 mg PO DAILY #2 tablet predniSONE [PredniSONE] 40 mg PO DAILY #10 tablet Home Medications: Atorvastatin [Lipitor] 40 mg PO DAILY 05/13/15 [History] Carvedilol [Coreg] 25 mg PO BID 05/13/15 [History] Furosemide [Lasix] 20 mg PO DAILY 05/13/15 [History] Gabapentin [Neurontin] 600 mg PO HS 05/13/15 [History] Glimepiride [Amaryl] 4 mg PO BID 05/13/15 [History] Hydrocodone/Acetaminophen [[place] 7.5-325 Tablet] 1 tab PO Q8H PRN 05/13/15 [ History] Losartan [Cozaar] 12.5 mg PO QMWF 05/13/15 [History] Metformin HCl [Glucophage Xr] 500 mg PO BID 05/13/15 [History] Omeprazole [PriLOSEC] 40 mg PO DAILY 05/13/15 [History] amLODIPine [Norvasc] 5 mg PO DAILY 05/13/15 [History] Oxygen 3 l NS AD 07/06/15 [History] Albuterol Sulfate [Albuterol Inhaler] 2 puff IH Q4HR PRN 05/31/17 [History] Budesonide Neb [Pulmicort Neb] 0.5 mg IH BIDR 05/31/17 [History] Ferrous Sulfate [Iron] 325 mg PO DAILY 05/31/17 [History] Arformoterol Tartrate [Brovana] 15 mcg IH BID 10/23/17 [History] Guaifenesin [Mucinex] 1,200 mg PO BID 10/23/17 [History] Levofloxacin [Levaquin] 500 mg PO DAILY #2 tablet 10/26/17 [Rx] predniSONE [PredniSONE] 40 mg PO DAILY #10 tablet 10/26/17 [Rx] Allergies/Adverse Reactions: 3 Allergy/AdvReac Type Severity Reaction Status Date / Time No Known Allergies Allergy Verified 10/23/17 15:49 Date of admission: 10/23/17 21:33 Primary care physician: Miles Schaeffer - Constitutional Vitals: Temp Pulse Resp BP Pulse Ox 97.8 F 74 18 165/74 93 10/26/17 07:42 10/26/17 07:42 10/26/17 07:42 10/26/17 07:42 10/26/17 08:04 General appearance: Present: A&O X 3, no acute distress, answers questions appropriately - Head Head exam: Present: atraumatic, normal inspection - Neck Neck exam general surgery: Present: supple - Respiratory Respiratory exam: Present: decreased breath sounds, wheezes (mild). Absent: rales, respiratory distress, rhonchi - Cardiovascular Cardiovascular exam: Present: RRR, +S1, +S2. Absent: tachycardia - GI/Abdominal GI/Abdominal exam: Present: normal bowel sounds, soft. Absent: rebound, rigid, tenderness - Extremities Exam Extremities exam: Absent: calf tenderness, pedal edema, tenderness - Back Exam Back exam: Absent: CVA tenderness (L), CVA tenderness (R) - Neurological Exam Neurological exam: Present: alert, oriented X3 - Patient Status Disposition: Home, Self-Care Condition: Good Overall status at discharge: patient is back to baseline - Discharge Instructions Follow Up With: Miles Schaeffer [Primary Care Provider] - - Diet and Activity Activity: increase activity as tolerated, wear oxygen at all times Diet: low salt diet
[2017-10-26] MEDS: Budesonide Neb 0.5 MG/2 ML IH SCH (09:56)
[2017-10-26 11:47] VITALS: BP 162/82
[2017-10-27] MEDS ORDERED: Levofloxacin 750 MG/150 ML 750 MG/150 ML BAG IVPB SCH (20:00)
[2017-10-29 07:36] LABS: Mycoplasma pneumoniae IgG 0.1 U/L (<=0.09)
== END 2017-10-26 14:40 | disposition home or self-care (01) | DRG 189 ==
LOC: 2ANU 15:39 → EMEROO 15:39 → 2ANU 19:22 → SUATTDRO 21:33
PROVIDERS: ADMIT Internal Medicine Hematology & Oncology; ATTEND Family Medicine

== ENCOUNTER 2020-03-06 13:29 | Inpatient (IN) ==
[2020-03-06] MEDS ORDERED: *HR* OxyCODONE/APAP 5/325 TABLET PO ONE (15:23)
[2020-03-06 15:57] LABS: Basophils # 0.1 K/mcL (0.0-0.2); Basophils % 0.7 %; Eosinophils # 0.2 K/mcL (0.0-0.6); Eosinophils % 2.4 %; Hematocrit 36.3 % (37.5-50.1); Hemoglobin 11.1 g/dL (12.9-16.9); Immature Granulocytes % 0.4 % (0-4); Lymphocytes # 1.4 K/mcL (0.6-4.6); Lymphocytes % 16.2 %; Mean Corpuscular HGB Conc 30.6 g/dL (31.6-35.5); Mean Corpuscular Hemoglobin 29.8 pg (28.0-33.3); Mean Corpuscular Volume 97.3 fL (83.0-100.0); Mean Platelet Volume 11.2 fL (9.4-12.4); Monocytes # 0.9 K/mcL (0.0-1.3); Monocytes % 10.3 %; Neutrophils # 5.9 K/mcL (1.6-8.9); Platelet Count 157 K/mcL (140-400); Red Blood Count 3.73 M/mcL (4.19-5.50); Red Cell Distribution Width 12.8 % (11.5-14.5); White Blood Count 8.5 K/mcL (4.3-11.1)
[2020-03-06 16:15] LABS: Prothrombin Time 11.9 Seconds (9.4-12.1)
[2020-03-06 16:18] LABS: Activated Partial Thrombo Time 28.9 Seconds (26.0-36.0)
[2020-03-06 16:20] LABS: Calcium 9.5 mg/dL (8.6-10.3); Potassium 5.3 mEq/L (3.5-5.1)
[2020-03-06] MEDS ORDERED: *HR* FentaNYL (PF) 100 MCG/2 ML VIAL IVP ONE (16:23)
[2020-03-06] MEDS ORDERED: Lactulose Oral Soln 20 GM/30 ML UDC PO ONE (16:28)
[2020-03-06] MEDS ORDERED: Naloxone 0.4 MG/ML INJ IVP PRN (16:49)
[2020-03-06] MEDS ORDERED: Acetaminophen 325 MG TABLET PO PRN (16:49)
[2020-03-06] MEDS ORDERED: *HR* OxyCODONE Immed Rel 5 MG TABLET PO PRN ×2 (16:49→16:54)
[2020-03-06] MEDS ORDERED: *HR* Promethazine 25 MG/ML VIAL IVP PRN (16:49)
[2020-03-06] MEDS ORDERED: Ringers Solution, Lactated 1,000 ML IVC ONE (16:53)
[2020-03-06] MEDS ORDERED: Dextrose Gel 15 GM/37.5 ML TUBE PO PRN ×2 (17:26)
[2020-03-06] MEDS ORDERED: *HR* Dextrose 50 % in Water (Vial) 50 ML VIAL IVP PRN (17:26)
[2020-03-06] MEDS ORDERED: D5% in Water 1,000 ML IVC PRN (17:26)
[2020-03-06] MEDS: Melatonin 3 MG TABLET PO SCH (20:04)
[2020-03-06] MEDS: polyethylene glycoL 3350 17 GM POWD.PACK PO SCH ×2 (20:04→20:13)
[2020-03-06] MEDS: Insulin LISPRO 300 UNITS/3 ML VIAL SQ SCH ×2 (21:25→21:41)
[2020-03-06] MEDS: *HR* Heparin 5,000 UNIT/ML VIAL SQ SCH (21:25)
[2020-03-07] MEDS ORDERED: Perflutren Lipid Microsphere 1.3 ML in 0.9 % Sodium Chloride 8.7 ML IVP PRN ×3 (02:00→07:51)
[2020-03-07] MEDS ORDERED: Levalbuterol Neb 1.25 MG/3 ML IH PRN ×2 (02:08→23:01)
[2020-03-07 02:28] LABS: Hematocrit 36.7 % (37.5-50.1); Hemoglobin 10.9 g/dL (12.9-16.9); Mean Corpuscular HGB Conc 29.7 g/dL (31.6-35.5); Mean Corpuscular Hemoglobin 29.3 pg (28.0-33.3); Mean Corpuscular Volume 98.7 fL (83.0-100.0); Mean Platelet Volume 11.3 fL (9.4-12.4); Platelet Count 156 K/mcL (140-400); Red Blood Count 3.72 M/mcL (4.19-5.50); Red Cell Distribution Width 12.8 % (11.5-14.5); White Blood Count 10.4 K/mcL (4.3-11.1)
[2020-03-07 02:47] LABS: Potassium 5.7 mEq/L (3.5-5.1)
[2020-03-07] MEDS ORDERED: Insulin Human Regular 10 UNIT in 0.9 % Sodium Chloride 10 ML IV ONE ×2 (03:38→17:38)
[2020-03-07] MEDS: *HR* Heparin 5,000 UNIT/ML VIAL SQ SCH ×3 (04:30→22:24)
[2020-03-07] MEDS: Insulin LISPRO 300 UNITS/3 ML VIAL SQ SCH ×4 (08:48→22:22)
[2020-03-07] MEDS: polyethylene glycoL 3350 17 GM POWD.PACK PO SCH ×2 (09:40→22:20)
[2020-03-07] MEDS: Ipratropium/Albuterol Neb 3 ML IH SCH ×5 (10:21→23:18)
[2020-03-07] MEDS ORDERED: *HR* Acetaminophen w/Cod 300-30 mg 1 TAB TABLET PO PRN ×2 (10:32→23:01)
[2020-03-07] MEDS ORDERED: predniSONE 20 MG TABLET PO SCH (10:45)
[2020-03-07] MEDS ORDERED: (Roflumilast [Daliresp] 500 MCG) PO SCH (10:45)
[2020-03-07 11:43] LABS: VBG HCO3 28 mEq/L (21-27); VBG PCO2 45 mmHg (41-51); VBG PO2 227 mmHg (25-50)
[2020-03-07] MEDS ORDERED: Lidocaine HCL 4 ML Topical Solution (Laryng-O-Jet Kit Sterile Pak) TP ONE (15:09)
[2020-03-07] MEDS ORDERED: Ondansetron 4 MG/2 ML VIAL ONE (15:51)
[2020-03-07] MEDS ORDERED: Lidocaine -MPF 2% 2 ML VIAL ONE (15:51)
[2020-03-07] MEDS ORDERED: *HR* Propofol 200 MG/20 ML VIAL IVP ONE (15:51)
[2020-03-07] MEDS ORDERED: Dexamethasone 4 MG/ML VIAL ONE (15:51)
[2020-03-07 15:52] LABS: Potassium 5.5 mEq/L (3.5-5.1)
[2020-03-07] MEDS ORDERED: *HR* Succinylcholine 200 MG/10 ML VIAL IVP ONE (16:24)
[2020-03-07] MEDS ORDERED: *HR* Rocuronium Bromide 50 MG/5 ML VIAL ONE (16:24)
[2020-03-07] MEDS ORDERED: *HR* FentaNYL (PF) 100 MCG/2 ML VIAL ONE (16:25)
[2020-03-07] MEDS ORDERED: ROPIVACAINE/PF/NS 0.25% 1 EACH SYRINGE INTRAART ONE (16:53)
[2020-03-07] MEDS ORDERED: Ropivacaine/PF 0.5% 30 ML VIAL ONE (16:53)
[2020-03-07] MEDS ORDERED: Acetaminophen IV 1,000 MG/100 ML INFUS..BTL ONE (16:54)
[2020-03-07] MEDS ORDERED: carvediloL 25 MG TABLET PO SCH (17:00)
[2020-03-07] MEDS ORDERED: Lidocaine/EPI 1:100k 1% 20 ML VIAL ONE (17:33)
[2020-03-07] MEDS ORDERED: *HR* Dextrose 50 % in Water (Vial) 50 ML VIAL IVP ONE (17:39)
[2020-03-07] MEDS ORDERED: SODIUM ZIRCONIUM CYCLOSILICATE 5 GM POWD.PACK PO SCH (17:45)
[2020-03-07] MEDS: Melatonin 3 MG TABLET PO SCH (22:20)
[2020-03-07] MEDS ORDERED: *HR* Promethazine 25 MG/ML VIAL IVP PRN (23:01)
[2020-03-07] MEDS ORDERED: Dextrose Gel 15 GM/37.5 ML TUBE PO PRN ×2 (23:01)
[2020-03-07] MEDS ORDERED: *HR* Dextrose 50 % in Water (Vial) 50 ML VIAL IVP PRN (23:01)
[2020-03-07] MEDS ORDERED: D5% in Water 1,000 ML IVC PRN (23:01)
[2020-03-07] MEDS ORDERED: Naloxone 0.4 MG/ML INJ IVP PRN (23:01)
[2020-03-08] MEDS ORDERED: ceFAZolin 2,000 MG in D5% in Water 100 ML IVPB SCH
[2020-03-08] MEDS ORDERED: CeFAZolin 2 GM/120 ML BAG IVPB SCH
[2020-03-08] MEDS: ceFAZolin 2,000 MG in 0.9 % Sodium Chloride 100 ML IVPB SCH ×2 (00:08→08:57)
[2020-03-08 02:08] LABS: Hematocrit 31.6 % (37.5-50.1); Mean Corpuscular HGB Conc 29.4 g/dL (31.6-35.5); Mean Corpuscular Hemoglobin 28.3 pg (28.0-33.3); Mean Platelet Volume 11.1 fL (9.4-12.4); Platelet Count 132 K/mcL (140-400); Red Blood Count 3.29 M/mcL (4.19-5.50); Red Cell Distribution Width 12.7 % (11.5-14.5)
[2020-03-08 02:09] LABS: Hemoglobin 9.3 g/dL (12.9-16.9)
[2020-03-08 02:22] LABS: Calcium 8.4 mg/dL (8.6-10.3); Potassium 5.4 mEq/L (3.5-5.1)
[2020-03-08] MEDS: Ipratropium/Albuterol Neb 3 ML IH SCH ×5 (03:29→20:35)
[2020-03-08] MEDS: *HR* Heparin 5,000 UNIT/ML VIAL SQ SCH ×3 (05:07→22:08)
[2020-03-08] MEDS ORDERED: Furosemide 40 MG/4 ML VIAL IVP ONE (07:48)
[2020-03-08] MEDS ORDERED: *HR* OxyCODONE Immed Rel 5 MG TABLET PO PRN (08:41)
[2020-03-08] MEDS: polyethylene glycoL 3350 17 GM POWD.PACK PO SCH ×2 (08:55→20:15)
[2020-03-08] MEDS: SODIUM ZIRCONIUM CYCLOSILICATE 5 GM POWD.PACK PO SCH (08:55)
[2020-03-08] MEDS: predniSONE 20 MG TABLET PO SCH (08:56)
[2020-03-08] MEDS: carvediloL 25 MG TABLET PO SCH ×2 (08:57→16:06)
[2020-03-08] MEDS ORDERED: (Roflumilast [Daliresp] 500 MCG) PO SCH (09:00)
[2020-03-08] MEDS: Insulin LISPRO 300 UNITS/3 ML VIAL SQ SCH ×4 (09:02→20:09)
[2020-03-08] MEDS: *HR* OxyCODONE Immed Rel 5 MG TABLET PO PRN ×3 (11:38→20:15)
[2020-03-08 15:35] LABS: Calcium 9.3 mg/dL (8.6-10.3); Potassium 5.3 mEq/L (3.5-5.1)
[2020-03-08] MEDS: Melatonin 3 MG TABLET PO SCH (20:15)
[2020-03-08] MEDS ORDERED: Morphine Sulfate 2 MG/ML SYRINGE IVP ONE (22:20)
[2020-03-09] MEDS: *HR* OxyCODONE Immed Rel 5 MG TABLET PO PRN ×5 (00:17→22:15)
[2020-03-09] MEDS: Ipratropium/Albuterol Neb 3 ML IH SCH ×6 (00:49→19:54)
[2020-03-09] MEDS ORDERED: hydrALAZINE 10 MG TABLET PO ONE (05:14)
[2020-03-09] MEDS: *HR* Heparin 5,000 UNIT/ML VIAL SQ SCH ×3 (05:31→22:13)
[2020-03-09 06:44] LABS: Hematocrit 32.6 % (37.5-50.1); Hemoglobin 9.7 g/dL (12.9-16.9); Mean Corpuscular HGB Conc 29.8 g/dL (31.6-35.5); Mean Corpuscular Hemoglobin 28.4 pg (28.0-33.3); Mean Corpuscular Volume 95.6 fL (83.0-100.0); Mean Platelet Volume 11.5 fL (9.4-12.4); Platelet Count 152 K/mcL (140-400); Red Blood Count 3.41 M/mcL (4.19-5.50); Red Cell Distribution Width 12.6 % (11.5-14.5); White Blood Count 10.4 K/mcL (4.3-11.1)
[2020-03-09 06:58] LABS: Calcium 9.4 mg/dL (8.6-10.3); Potassium 4.6 mEq/L (3.5-5.1)
[2020-03-09] MEDS: predniSONE 20 MG TABLET PO SCH (07:41)
[2020-03-09] MEDS: polyethylene glycoL 3350 17 GM POWD.PACK PO SCH ×2 (07:41→19:46)
[2020-03-09] MEDS: SODIUM ZIRCONIUM CYCLOSILICATE 5 GM POWD.PACK PO SCH (07:41)
[2020-03-09] MEDS: Insulin LISPRO 300 UNITS/3 ML VIAL SQ SCH ×4 (07:48→21:57)
[2020-03-09] MEDS: carvediloL 25 MG TABLET PO SCH ×2 (07:49→16:40)
[2020-03-09] MEDS ORDERED: Ondansetron ODT 4 MG TAB.RAPDIS SL PRN (12:11)
[2020-03-09] MEDS: Furosemide 40 MG TABLET PO SCH (13:47)
[2020-03-09] MEDS: Melatonin 3 MG TABLET PO SCH (19:46)
[2020-03-09] MEDS: Azelastine 0.1% Nasal Spray 30 ML BOTTLE NS SCH (22:14)
[2020-03-10] MEDS: Ipratropium/Albuterol Neb 3 ML IH SCH ×7 (00:33→23:58)
[2020-03-10] MEDS: Budesonide Neb 0.5 MG/2 ML IH SCH ×3 (00:33→20:12)
[2020-03-10] MEDS: *HR* OxyCODONE Immed Rel 5 MG TABLET PO PRN ×4 (02:16→22:44)
[2020-03-10] MEDS ORDERED: hydrALAZINE 10 MG TABLET PO PRN (03:42)
[2020-03-10 06:03] LABS: Basophils % 0.1 %; Eosinophils # 0.1 K/mcL (0.0-0.6); Eosinophils % 0.7 %; Hematocrit 32.5 % (37.5-50.1); Hemoglobin 9.9 g/dL (12.9-16.9); Immature Granulocytes % 0.5 % (0-4); Lymphocytes # 1.4 K/mcL (0.6-4.6); Lymphocytes % 16.4 %; Mean Corpuscular HGB Conc 30.5 g/dL (31.6-35.5); Mean Corpuscular Hemoglobin 28.2 pg (28.0-33.3); Mean Corpuscular Volume 92.6 fL (83.0-100.0); Mean Platelet Volume 11.3 fL (9.4-12.4); Monocytes # 0.8 K/mcL (0.0-1.3); Monocytes % 9.2 %; Neutrophils # 6.3 K/mcL (1.6-8.9); Platelet Count 165 K/mcL (140-400); Red Blood Count 3.51 M/mcL (4.19-5.50); Red Cell Distribution Width 12.8 % (11.5-14.5); Segmented Neutrophils % 73.1 %; White Blood Count 8.7 K/mcL (4.3-11.1)
[2020-03-10] MEDS: *HR* Heparin 5,000 UNIT/ML VIAL SQ SCH ×3 (06:25→22:43)
[2020-03-10 07:23] LABS: Calcium 9.5 mg/dL (8.6-10.3); Potassium 4.5 mEq/L (3.5-5.1)
[2020-03-10] MEDS: Insulin LISPRO 300 UNITS/3 ML VIAL SQ SCH ×4 (11:03→22:47)
[2020-03-10] MEDS: carvediloL 25 MG TABLET PO SCH ×2 (11:07→16:26)
[2020-03-10] MEDS: Furosemide 40 MG TABLET PO SCH (11:07)
[2020-03-10] MEDS: Gabapentin 300 MG CAPSULE PO SCH (11:07)
[2020-03-10] MEDS: Cyanocobalamin (B-12) 1,000 MCG TABLET PO SCH (11:07)
[2020-03-10] MEDS: Azelastine 0.1% Nasal Spray 30 ML BOTTLE NS SCH ×2 (11:08→22:45)
[2020-03-10] MEDS: polyethylene glycoL 3350 17 GM POWD.PACK PO SCH ×2 (11:08→22:43)
[2020-03-10] MEDS: SODIUM ZIRCONIUM CYCLOSILICATE 5 GM POWD.PACK PO SCH (11:08)
[2020-03-10] MEDS: Fluticasone Propionate Nasal 50 MCG/SPRAY BOTTLE NS SCH (11:14)
[2020-03-10] MEDS: hydrALAZINE 25 MG TABLET PO SCH (16:25)
[2020-03-10] MEDS: Melatonin 3 MG TABLET PO SCH (22:43)
[2020-03-11] MEDS: hydrALAZINE 25 MG TABLET PO SCH ×4 (02:46→21:14)
[2020-03-11 02:49] LABS: Basophils % 0.4 %; Eosinophils # 0.2 K/mcL (0.0-0.6); Eosinophils % 2.4 %; Hemoglobin 10.5 g/dL (12.9-16.9); Immature Granulocytes % 0.4 % (0-4); Lymphocytes # 1.5 K/mcL (0.6-4.6); Lymphocytes % 20.8 %; Mean Corpuscular HGB Conc 30.9 g/dL (31.6-35.5); Mean Corpuscular Hemoglobin 28.9 pg (28.0-33.3); Mean Corpuscular Volume 93.7 fL (83.0-100.0); Mean Platelet Volume 11.1 fL (9.4-12.4); Monocytes # 0.6 K/mcL (0.0-1.3); Monocytes % 8.6 %; Neutrophils # 4.8 K/mcL (1.6-8.9); Platelet Count 168 K/mcL (140-400); Red Blood Count 3.63 M/mcL (4.19-5.50); Red Cell Distribution Width 12.9 % (11.5-14.5); Segmented Neutrophils % 67.4 %; White Blood Count 7.1 K/mcL (4.3-11.1)
[2020-03-11 03:15] LABS: Calcium 9.4 mg/dL (8.6-10.3); Potassium 4.3 mEq/L (3.5-5.1)
[2020-03-11] MEDS: Ipratropium/Albuterol Neb 3 ML IH SCH ×6 (03:21→23:52)
[2020-03-11] MEDS: *HR* Heparin 5,000 UNIT/ML VIAL SQ SCH ×3 (05:01→23:01)
[2020-03-11] MEDS: Budesonide Neb 0.5 MG/2 ML IH SCH ×2 (08:18→20:25)
[2020-03-11] MEDS: Cyanocobalamin (B-12) 1,000 MCG TABLET PO SCH (09:53)
[2020-03-11] MEDS: Gabapentin 300 MG CAPSULE PO SCH (09:53)
[2020-03-11] MEDS: carvediloL 25 MG TABLET PO SCH ×2 (09:53→17:05)
[2020-03-11] MEDS ORDERED: amLODIPine 5 MG TABLET PO SCH (09:54)
[2020-03-11] MEDS: polyethylene glycoL 3350 17 GM POWD.PACK PO SCH ×2 (09:54→21:14)
[2020-03-11] MEDS: Furosemide 40 MG TABLET PO SCH (09:54)
[2020-03-11] MEDS: Insulin LISPRO 300 UNITS/3 ML VIAL SQ SCH ×4 (09:56→20:58)
[2020-03-11] MEDS: Azelastine 0.1% Nasal Spray 30 ML BOTTLE NS SCH ×2 (09:57→21:16)
[2020-03-11] MEDS: Fluticasone Propionate Nasal 50 MCG/SPRAY BOTTLE NS SCH (09:58)
[2020-03-11] MEDS: *HR* OxyCODONE Immed Rel 5 MG TABLET PO PRN (13:35)
[2020-03-11] MEDS: Melatonin 3 MG TABLET PO SCH (21:14)
[2020-03-12] MEDS: Ipratropium/Albuterol Neb 3 ML IH SCH ×2 (04:51→07:32)
[2020-03-12] MEDS: *HR* Heparin 5,000 UNIT/ML VIAL SQ SCH (05:00)
[2020-03-12] MEDS: hydrALAZINE 25 MG TABLET PO SCH (05:00)
[2020-03-12] MEDS: Budesonide Neb 0.5 MG/2 ML IH SCH (07:32)
[2020-03-12] MEDS: Cyanocobalamin (B-12) 1,000 MCG TABLET PO SCH (07:35)
[2020-03-12] MEDS: Gabapentin 300 MG CAPSULE PO SCH (07:35)
[2020-03-12] MEDS: carvediloL 25 MG TABLET PO SCH (07:35)
[2020-03-12] MEDS: Furosemide 40 MG TABLET PO SCH (07:36)
[2020-03-12] MEDS: polyethylene glycoL 3350 17 GM POWD.PACK PO SCH (07:36)
[2020-03-12] MEDS: Azelastine 0.1% Nasal Spray 30 ML BOTTLE NS SCH (07:43)
[2020-03-12] MEDS: Fluticasone Propionate Nasal 50 MCG/SPRAY BOTTLE NS SCH (07:43)
[2020-03-12] MEDS: *HR* OxyCODONE Immed Rel 5 MG TABLET PO PRN (07:44)
[2020-03-12] MEDS: Insulin LISPRO 300 UNITS/3 ML VIAL SQ SCH (11:05)
[2020-03-12 11:44] VITALS: BP 122/73
== END 2020-03-12 11:50 | DRG 492 ==
LOC: EMEROOARM 13:29 → 3NENU 13:29 → SUATTDRO 03-09 12:41
PROVIDERS: ADMIT Student in an Organized Health Care Education/Training Program; ATTEND Internal Medicine

== ENCOUNTER 2020-10-10 11:40 | Inpatient (IN) ==
[2020-10-10 14:57] LABS: Basophils % 0.5 %; Eosinophils # 0.2 K/mcL (0.0-0.6); Eosinophils % 2.4 %; Immature Granulocytes % 0.6 % (0-4); Lymphocytes # 1.1 K/mcL (0.6-4.6); Lymphocytes % 13.3 %; Mean Corpuscular HGB Conc 29.4 g/dL (31.6-35.5); Mean Corpuscular Hemoglobin 28.4 pg (28.0-33.3); Mean Corpuscular Volume 96.6 fL (83.0-100.0); Mean Platelet Volume 11.6 fL (9.4-12.4); Monocytes # 0.6 K/mcL (0.0-1.3); Monocytes % 7.8 %; Platelet Count 176 K/mcL (140-400); Red Blood Count 3.52 M/mcL (4.19-5.50); Red Cell Distribution Width 12.8 % (11.5-14.5); Segmented Neutrophils % 75.4 %
[2020-10-10 14:58] LABS: Alanine Aminotransferase 9 Units/L (7-52); Albumin 3.5 g/dL (3.5-5.7); Albumin/Globulin Ratio 1.1 (1.1-2.2); Alkaline Phosphatase 85 Units/L (34-104); Aspartate Amino Transferase 10 Units/L (13-39); BUN/Creatinine Ratio 26 (6-26); Bilirubin,Total 0.3 mg/dL (0.3-1.0); Blood Urea Nitrogen 60 mg/dL (8-23); Calcium 9.4 mg/dL (8.6-10.3); Carbon Dioxide 29 mEq/L (23-29); Chloride 108 mEq/L (98-107); Globulin 3.1 g/dL (2.4-3.5); Glucose 92 mg/dL (70-105); Lipase 24 Units/L (11-82); Osmolality,Calculated 315 (280-300); Potassium 5.3 mEq/L (3.5-5.1); Sodium 144 mEq/L (136-145); Total Protein 6.6 g/dL (6.4-8.9); eGFR For African Americans 33 (> 60); eGFR For Non-African Americans 27 (> 60)
[2020-10-10 16:03] LABS: Troponin I < 0.03 ng/mL (< 0.04)
[2020-10-10] MEDS ORDERED: Ipratropium/Albuterol Neb 3 ML IH ONE (16:25)
[2020-10-10] MEDS ORDERED: *HR* HYDROcodone/Acet 5/325 mg TABLET PO PRN (16:42)
[2020-10-10] MEDS ORDERED: Naloxone 0.4 MG/ML INJ IVP PRN (16:42)
[2020-10-10] MEDS ORDERED: Melatonin 3 MG TABLET PO PRN (16:42)
[2020-10-10] MEDS ORDERED: Acetaminophen 325 MG TABLET PO PRN (16:42)
[2020-10-10] MEDS ORDERED: Ondansetron 4 MG/2 ML VIAL IVP PRN (16:42)
[2020-10-10] MEDS ORDERED: Ipratropium/Albuterol Neb 3 ML IH PRN (17:02)
[2020-10-10] MEDS ORDERED: Dextrose Gel 15 GM/37.5 ML TUBE PO PRN ×2 (17:02)
[2020-10-10] MEDS ORDERED: *HR* Dextrose 50 % in Water (Vial) 50 ML VIAL IVP PRN (17:02)
[2020-10-10] MEDS ORDERED: D5% in Water 1,000 ML IVC PRN (17:02)
[2020-10-10 19:05] LABS: Estimated Average Glucose 137 mg/dl; Hemoglobin A1C 6.4 %
[2020-10-10] MEDS: Insulin LISPRO 300 UNITS/3 ML VIAL SUBQ SCH (21:11)
[2020-10-10] MEDS: Ipratropium/Albuterol Neb 3 ML IH SCH (22:59)
[2020-10-10] MEDS: Budesonide/Formoterol 160/4.5 1 PUFF INH IH SCH (22:59)
[2020-10-11 01:50] LABS: Basophils # 0.1 K/mcL (0.0-0.2); Basophils % 0.7 %; Eosinophils # 0.2 K/mcL (0.0-0.6); Eosinophils % 2.5 %; Hematocrit 33.3 % (37.5-50.1); Hemoglobin 9.8 g/dL (12.9-16.9); Immature Granulocytes % 0.4 % (0-4); Lymphocytes # 1.1 K/mcL (0.6-4.6); Lymphocytes % 16.9 %; Mean Corpuscular HGB Conc 29.4 g/dL (31.6-35.5); Mean Corpuscular Hemoglobin 27.9 pg (28.0-33.3); Mean Corpuscular Volume 94.9 fL (83.0-100.0); Mean Platelet Volume 11.5 fL (9.4-12.4); Monocytes # 0.6 K/mcL (0.0-1.3); Monocytes % 9.1 %; Neutrophils # 4.7 K/mcL (1.6-8.9); Platelet Count 176 K/mcL (140-400); Red Blood Count 3.51 M/mcL (4.19-5.50); Red Cell Distribution Width 12.7 % (11.5-14.5); Segmented Neutrophils % 70.4 %; White Blood Count 6.7 K/mcL (4.3-11.1)
[2020-10-11 02:04] LABS: INR 1.2; Prothrombin Time 13.9 Seconds (9.4-12.1)
[2020-10-11 02:17] LABS: Albumin 3.4 g/dL (3.5-5.7); Albumin/Globulin Ratio 1.2 (1.1-2.2); Bilirubin,Total 0.2 mg/dL (0.3-1.0); Calcium 9.2 mg/dL (8.6-10.3); Globulin 2.8 g/dL (2.4-3.5); Magnesium 1.6 mg/dL (1.6-2.6); Phosphorous 3.4 mg/dL (2.7-4.5); Potassium 5.1 mEq/L (3.5-5.1); Total Protein 6.2 g/dL (6.4-8.9)
[2020-10-11 02:33] LABS: Folate 5.9 ng/mL (3.0-16.0)
[2020-10-11] MEDS: Ipratropium/Albuterol Neb 3 ML IH SCH ×4 (03:58→22:44)
[2020-10-11] MEDS ORDERED: Iron Sucrose Complex 400 MG in 0.9 % Sodium Chloride 250 ML IVPB ONE (07:58)
[2020-10-11] MEDS: Insulin LISPRO 300 UNITS/3 ML VIAL SUBQ SCH ×4 (08:06→21:23)
[2020-10-11] MEDS: Gabapentin 100 MG CAPSULE PO SCH ×2 (09:32→21:24)
[2020-10-11] MEDS: Budesonide/Formoterol 160/4.5 1 PUFF INH IH SCH ×2 (10:51→22:44)
[2020-10-11] MEDS: polyethylene glycoL 3350 17 GM POWD.PACK PO SCH (11:02)
[2020-10-11] MEDS: *HR* OxyCODONE Immed Rel 5 MG TABLET PO PRN ×2 (11:20→18:02)
[2020-10-11] MEDS: hydrALAZINE 25 MG TABLET PO SCH (15:41)
[2020-10-11] MEDS ORDERED: Fluticasone Propionate Nasal 50 MCG/SPRAY BOTTLE NS PRN (16:32)
[2020-10-11] MEDS ORDERED: carvediloL 25 MG TABLET PO SCH (21:00)
[2020-10-11] MEDS ORDERED: NON-FORMULARY MEDICATION 1 EACH EACH (Carvedilol [Carvedilol] 12.5 MG Tablet) PO SCH (21:00)
[2020-10-11] MEDS: Azelastine 0.1% Nasal Spray 30 ML BOTTLE NS SCH (21:25)
[2020-10-12] MEDS: hydrALAZINE 25 MG TABLET PO SCH ×2 (00:02→11:19)
[2020-10-12] MEDS: *HR* OxyCODONE Immed Rel 5 MG TABLET PO PRN ×2 (03:31→11:35)
[2020-10-12] MEDS: Ipratropium/Albuterol Neb 3 ML IH SCH ×2 (03:31→10:39)
[2020-10-12 03:45] LABS: Hematocrit 33.3 % (37.5-50.1); Mean Corpuscular Volume 93.3 fL (83.0-100.0); Mean Platelet Volume 11.3 fL (9.4-12.4); Platelet Count 181 K/mcL (140-400); Red Blood Count 3.57 M/mcL (4.19-5.50); Red Cell Distribution Width 12.8 % (11.5-14.5)
[2020-10-12 04:01] LABS: Calcium 9.2 mg/dL (8.6-10.3); Magnesium 1.7 mg/dL (1.6-2.6); Phosphorous 3.1 mg/dL (2.7-4.5); Potassium 5.2 mEq/L (3.5-5.1)
[2020-10-12 06:59] VITALS: BP 160/75
[2020-10-12] MEDS: Gabapentin 100 MG CAPSULE PO SCH (08:40)
[2020-10-12] MEDS: Insulin LISPRO 300 UNITS/3 ML VIAL SUBQ SCH (08:43)
[2020-10-12] MEDS: polyethylene glycoL 3350 17 GM POWD.PACK PO SCH (08:44)
[2020-10-12] MEDS: Azelastine 0.1% Nasal Spray 30 ML BOTTLE NS SCH (08:45)
[2020-10-12] MEDS ORDERED: Furosemide 40 MG TABLET PO SCH (09:00)
[2020-10-12] MEDS ORDERED: Multivit/Ca/Min/Fe/FA 1 TAB TABLET PO SCH (09:00)
[2020-10-12] MEDS ORDERED: Cyanocobalamin (B-12) 1,000 MCG TABLET PO SCH (09:00)
[2020-10-12] MEDS ORDERED: Cholecalciferol (D-3) 1,000 UNIT (25MCG) TABLET PO SCH (09:00)
[2020-10-12] MEDS: Budesonide/Formoterol 160/4.5 1 PUFF INH IH SCH (10:38)
== END 2020-10-12 11:58 | disposition home or self-care (01) | DRG 184 ==
LOC: EMEROOARM 11:40 → 3NENU 11:40 → SUATTDRO 16:22 → 3NENU 17:22
PROVIDERS: ADMIT Internal Medicine; ATTEND Internal Medicine

== ENCOUNTER 2021-02-05 08:10 | Inpatient (IN) ==
[2021-02-05] MEDS ORDERED: *HR* Heparin 5,000 UNIT/ML VIAL ONE (08:22)
[2021-02-05] MEDS ORDERED: 0.9 % Sodium Chloride 1,000 ML ONE (08:23)
[2021-02-05] MEDS ORDERED: Aspirin 81 MG TAB.CHEW ONE (08:23)
[2021-02-05] MEDS ORDERED: *HR* Ticagrelor 90 MG TABLET ONE (08:23)
[2021-02-05 08:47] LABS: Basophils # 0.1 K/mcL (0.0-0.2); Basophils % 0.5 %; Eosinophils # 0.4 K/mcL (0.0-0.6); Eosinophils % 2.7 %; Hematocrit 42.5 % (37.5-50.1); Hemoglobin 12.4 g/dL (12.9-16.9); Immature Granulocytes % 0.6 % (0-4); Lymphocytes # 2.1 K/mcL (0.6-4.6); Lymphocytes % 15.3 %; Mean Corpuscular HGB Conc 29.2 g/dL (31.6-35.5); Mean Corpuscular Hemoglobin 28.7 pg (28.0-33.3); Mean Corpuscular Volume 98.4 fL (83.0-100.0); Mean Platelet Volume 11.3 fL (9.4-12.4); Monocytes # 0.8 K/mcL (0.0-1.3); Monocytes % 5.6 %; Neutrophils # 10.1 K/mcL (1.6-8.9); Platelet Count 202 K/mcL (140-400); Red Blood Count 4.32 M/mcL (4.19-5.50); Red Cell Distribution Width 12.7 % (11.5-14.5); Segmented Neutrophils % 75.3 %; White Blood Count 13.5 K/mcL (4.3-11.1)
[2021-02-05] MEDS ORDERED: *HR* FentaNYL (PF) 100 MCG/2 ML VIAL IVP ONE (09:03)
[2021-02-05 09:09] LABS: VBG HCO3 34 mEq/L (21-27); VBG PCO2 129 mmHg (41-51); VBG PH 7.02 pH Units (7.32-7.42); VBG PO2 90 mmHg (25-50)
[2021-02-05] MEDS ORDERED: *HR* Heparin 5,000 UNIT/ML VIAL IVP ONE (09:09)
[2021-02-05 09:14] LABS: Calcium 9.3 mg/dL (8.6-10.3); Potassium 6.7 mEq/L (3.5-5.1); Troponin I 0.03 ng/mL (< 0.04)
[2021-02-05] MEDS ORDERED: FentaNYL (PF) 1,000 MCG/100 ML IV.SOLN IVC SCH ×2 (09:15→15:30)
[2021-02-05] MEDS ORDERED: Insulin Human Regular 10 UNIT in 0.9 % Sodium Chloride 10 ML IV ONE (09:22)
[2021-02-05 11:09] LABS: Amorphous Sediment,Urine Few per hpf (None-Few); Bilirubin,Urine Negative (Negative); Blood,Urine Trace (Negative); Clarity,Urine Clear (Clear); Color,Urine Light-Yellow (Yellow); Glucose,Urine (UA) Normal (Normal); Ketones,Urine Negative (Negative); Leukocyte Esterase,Urine Negative (Negative); Mucus,Urine Few per lpf (None-Few); Nitrite,Urine Negative (Negative); PH,Urine 5.5 pH Units (5.0-8.0); Protein,Urine 100 mg/dL (Neg-Trace); RBC,Urine 0-3 per hpf (0-3); Specific Gravity,Urine 1.012 (1.010-1.025); Squamous Epithelial Cell,Urine Few per hpf (None-Few); Urobilinogen,Urine Normal (Normal); WBC,Urine 0-3 per hpf (0-3)
[2021-02-05] MEDS ORDERED: Piperacillin/Tazobactam 3.375 GM in Water for inj. (sterile) 20 ML IVP ONE (11:09)
[2021-02-05] MEDS ORDERED: Vancomycin (wt based) 1,000 MG VIAL IV STA (11:09)
[2021-02-05] MEDS ORDERED: Piperacillin/Tazobactam 3.375 GM in 0.9 % Sodium Chloride Mini Bag 100 ML IVPB ONE (11:15)
[2021-02-05] MEDS ORDERED: Vancomycin 1,500 MG/265 ML IV.SOLN IVPB ONE (12:00)
[2021-02-05] MEDS ORDERED: Acetaminophen 650 MG RECTAL SUPP RC PRN (12:21)
[2021-02-05] MEDS ORDERED: Naloxone 0.4 MG/ML INJ IVP PRN (12:21)
[2021-02-05] MEDS ORDERED: Artificial Tears SOLN 15 ML BOTTLE BOTH EYES PRN (12:21)
[2021-02-05] MEDS ORDERED: Ondansetron 4 MG/2 ML VIAL IVP PRN (12:21)
[2021-02-05] MEDS: Ipratropium/Albuterol Neb 3 ML IH SCH ×3 (13:30→22:30)
[2021-02-05] MEDS: Budesonide/Formoterol 160/4.5 1 PUFF INH IH SCH ×2 (13:30→22:28)
[2021-02-05] MEDS: Pantoprazole 40 MG VIAL IVP SCH (13:39)
[2021-02-05 13:54] LABS: ABG Base Excess 4 mEq/L (-2 to 3); ABG HCO3 32 mEq/L (21-27); ABG Oxygen Saturation 90 % (95-98); ABG PCO2 67 mmHg (35-45); ABG PH 7.29 pH Units (7.32-7.45); ABG PO2 69 mmHg (85-104); ABG TCO2 34 mEq/L (20-26); Blood Gas Modality ASSIST CONTROL; Blood Gas VT 500 cc
[2021-02-05 14:02] LABS: Calcium 9.1 mg/dL (8.6-10.3); Magnesium 1.5 mg/dL (1.6-2.6); Potassium 6.1 mEq/L (3.5-5.1)
[2021-02-05] MEDS ORDERED: 0.9 % Sodium Chloride 1,000 ML IVC ONE (14:49)
[2021-02-05] MEDS: methylPREDNISolone 125 MG/2 ML VIAL IVP SCH ×2 (15:05→23:42)
[2021-02-05] MEDS: Artificial Tears SOLN 15 ML BOTTLE BOTH EYES SCH ×3 (17:16→23:40)
[2021-02-05] MEDS: *HR* Heparin 5,000 UNIT/ML VIAL SQ SCH (17:23)
[2021-02-05] MEDS: Chlorhexidine Rinse 15 ML MOUTHWASH MM SCH (20:26)
[2021-02-06] MEDS: Ipratropium/Albuterol Neb 3 ML IH SCH ×4 (03:43→22:01)
[2021-02-06] MEDS: Artificial Tears SOLN 15 ML BOTTLE BOTH EYES SCH ×2 (03:45→07:12)
[2021-02-06 03:57] LABS: ABG Base Excess 2 mEq/L (-2 to 3); ABG HCO3 29 mEq/L (21-27); ABG Oxygen Saturation 91 % (95-98); ABG PCO2 53 mmHg (35-45); ABG PH 7.35 pH Units (7.32-7.45); ABG PO2 64 mmHg (85-104); ABG TCO2 31 mEq/L (20-26); Blood Gas Modality ASSIST CONTROL; Blood Gas VT 500 cc
[2021-02-06 04:38] LABS: Basophils % 0.1 %; Hematocrit 35.2 % (37.5-50.1); Immature Granulocytes % 0.3 % (0-4); Lymphocytes # 0.3 K/mcL (0.6-4.6); Lymphocytes % 3.4 %; Mean Corpuscular HGB Conc 29.5 g/dL (31.6-35.5); Mean Corpuscular Hemoglobin 28.3 pg (28.0-33.3); Mean Corpuscular Volume 95.7 fL (83.0-100.0); Mean Platelet Volume 11.7 fL (9.4-12.4); Monocytes # 0.1 K/mcL (0.0-1.3); Monocytes % 0.5 %; Neutrophils # 8.9 K/mcL (1.6-8.9); Platelet Count 147 K/mcL (140-400); Red Blood Count 3.68 M/mcL (4.19-5.50); Red Cell Distribution Width 12.9 % (11.5-14.5); Segmented Neutrophils % 95.7 %; White Blood Count 9.4 K/mcL (4.3-11.1)
[2021-02-06 04:40] LABS: Hemoglobin 10.4 g/dL (12.9-16.9)
[2021-02-06 04:44] LABS: Calcium 9.1 mg/dL (8.6-10.3); Potassium 5.5 mEq/L (3.5-5.1)
[2021-02-06 05:01] LABS: Magnesium 1.5 mg/dL (1.6-2.6)
[2021-02-06] MEDS: *HR* Heparin 5,000 UNIT/ML VIAL SQ SCH ×2 (05:45→17:26)
[2021-02-06] MEDS: Pantoprazole 40 MG VIAL IVP SCH (07:10)
[2021-02-06] MEDS: methylPREDNISolone 125 MG/2 ML VIAL IVP SCH (07:12)
[2021-02-06] MEDS: Chlorhexidine Rinse 15 ML MOUTHWASH MM SCH (07:12)
[2021-02-06] MEDS ORDERED: Furosemide 40 MG/4 ML VIAL IVP ONE (07:27)
[2021-02-06] MEDS ORDERED: *HR* Labetalol 20 MG/4 ML SYRINGE IVP ONE (08:48)
[2021-02-06] MEDS: Budesonide/Formoterol 160/4.5 1 PUFF INH IH SCH (11:02)
[2021-02-06 15:51] LABS: Calcium 9.7 mg/dL (8.6-10.3); Potassium 4.9 mEq/L (3.5-5.1)
[2021-02-06] MEDS ORDERED: Fluticasone Propionate Nasal 50 MCG/SPRAY BOTTLE NS PRN (16:10)
[2021-02-06] MEDS ORDERED: *HR* Dextrose 50 % in Water (Vial) 50 ML VIAL IVP PRN (16:13)
[2021-02-06] MEDS ORDERED: D5% in Water 1,000 ML IVC PRN (16:13)
[2021-02-06] MEDS ORDERED: Dextrose Gel 15 GM/37.5 ML TUBE PO PRN ×2 (16:13)
[2021-02-06] MEDS: amLODIPine 5 MG TABLET PO SCH (16:35)
[2021-02-06] MEDS: Insulin LISPRO 300 UNITS/3 ML VIAL SUBQ SCH ×2 (16:35→19:42)
[2021-02-06] MEDS: carvediloL 6.25 MG TABLET PO SCH (16:35)
[2021-02-06] MEDS: Doxycycline 100 MG in 0.9 % Sodium Chloride Mini Bag 100 ML IVPB SCH (17:27)
[2021-02-06] MEDS ORDERED: Acetaminophen 325 MG TABLET PO PRN (20:16)
[2021-02-06] MEDS: Sucralfate 1 GM TABLET PO SCH (20:19)
[2021-02-06] MEDS: Budesonide Neb 0.5 MG/2 ML IH SCH (22:01)
[2021-02-07] MEDS: Ipratropium/Albuterol Neb 3 ML IH SCH ×4 (03:45→22:08)
[2021-02-07] MEDS: *HR* Heparin 5,000 UNIT/ML VIAL SQ SCH ×2 (05:26→17:12)
[2021-02-07] MEDS: Doxycycline 100 MG in 0.9 % Sodium Chloride Mini Bag 100 ML IVPB SCH (05:26)
[2021-02-07 06:47] LABS: VBG Ionized Calcium 1.07 mmol/L (1.15-1.35)
[2021-02-07] MEDS: Insulin LISPRO 300 UNITS/3 ML VIAL SUBQ SCH ×4 (07:48→23:07)
[2021-02-07 07:49] LABS: Basophils % 0.1 %; Hematocrit 33.5 % (37.5-50.1); Hemoglobin 10.7 g/dL (12.9-16.9); Immature Granulocytes % 0.6 % (0-4); Lymphocytes # 0.8 K/mcL (0.6-4.6); Lymphocytes % 6.5 %; Mean Corpuscular HGB Conc 31.9 g/dL (31.6-35.5); Mean Corpuscular Hemoglobin 28.8 pg (28.0-33.3); Mean Corpuscular Volume 90.1 fL (83.0-100.0); Mean Platelet Volume 11.6 fL (9.4-12.4); Monocytes # 0.8 K/mcL (0.0-1.3); Neutrophils # 11.2 K/mcL (1.6-8.9); Platelet Count 152 K/mcL (140-400); Red Blood Count 3.72 M/mcL (4.19-5.50); Red Cell Distribution Width 13.4 % (11.5-14.5); Segmented Neutrophils % 86.8 %; White Blood Count 12.9 K/mcL (4.3-11.1)
[2021-02-07] MEDS: amLODIPine 5 MG TABLET PO SCH ×2 (08:37→14:53)
[2021-02-07] MEDS: carvediloL 6.25 MG TABLET PO SCH ×2 (08:37→17:12)
[2021-02-07] MEDS: Sucralfate 1 GM TABLET PO SCH ×2 (08:40→20:41)
[2021-02-07] MEDS ORDERED: methylPREDNISolone 125 MG/2 ML VIAL IVP SCH (09:00)
[2021-02-07] MEDS: Budesonide Neb 0.5 MG/2 ML IH SCH ×2 (09:43→22:08)
[2021-02-07 14:23] LABS: Calcium 9.7 mg/dL (8.6-10.3); Potassium 4.7 mEq/L (3.5-5.1)
[2021-02-07] MEDS: Calcium Gluconate 1gm/50mL 1 GM/50 ML BAG IVPB SCH ×2 (14:54→15:38)
[2021-02-07] MEDS: Doxycycline 100 MG CAPSULE PO SCH (20:41)
[2021-02-08] MEDS: Ipratropium/Albuterol Neb 3 ML IH SCH ×4 (03:14→22:34)
[2021-02-08] MEDS: *HR* Heparin 5,000 UNIT/ML VIAL SQ SCH ×2 (05:54→17:31)
[2021-02-08 06:07] LABS: VBG Ionized Calcium 1.23 mmol/L (1.15-1.35)
[2021-02-08 06:11] LABS: Basophils % 0.1 %; Hematocrit 34.1 % (37.5-50.1); Hemoglobin 10.8 g/dL (12.9-16.9); Immature Granulocytes % 0.7 % (0-4); Lymphocytes # 0.9 K/mcL (0.6-4.6); Lymphocytes % 8.4 %; Mean Corpuscular HGB Conc 31.7 g/dL (31.6-35.5); Mean Corpuscular Hemoglobin 28.5 pg (28.0-33.3); Mean Platelet Volume 11.5 fL (9.4-12.4); Monocytes # 0.9 K/mcL (0.0-1.3); Monocytes % 8.2 %; Neutrophils # 8.8 K/mcL (1.6-8.9); Platelet Count 165 K/mcL (140-400); Red Blood Count 3.79 M/mcL (4.19-5.50); Red Cell Distribution Width 13.3 % (11.5-14.5); Segmented Neutrophils % 82.6 %; White Blood Count 10.6 K/mcL (4.3-11.1)
[2021-02-08 06:30] LABS: Albumin 3.4 g/dL (3.5-5.7); Albumin/Globulin Ratio 1.2 (1.1-2.2); Bilirubin,Total 0.4 mg/dL (0.3-1.0); Calcium 9.9 mg/dL (8.6-10.3); Globulin 2.8 g/dL (2.4-3.5); Magnesium 1.9 mg/dL (1.6-2.6); Phosphorous 2.9 mg/dL (2.7-4.5); Potassium 4.6 mEq/L (3.5-5.1); Total Protein 6.2 g/dL (6.4-8.9)
[2021-02-08] MEDS: Insulin LISPRO 300 UNITS/3 ML VIAL SUBQ SCH ×3 (09:44→17:31)
[2021-02-08] MEDS: methylPREDNISolone 125 MG/2 ML VIAL IVP SCH (09:45)
[2021-02-08] MEDS: carvediloL 6.25 MG TABLET PO SCH ×2 (09:46→17:30)
[2021-02-08] MEDS: Doxycycline 100 MG CAPSULE PO SCH ×2 (09:46→20:20)
[2021-02-08] MEDS: amLODIPine 5 MG TABLET PO SCH ×2 (09:46→09:53)
[2021-02-08] MEDS: Sucralfate 1 GM TABLET PO SCH ×2 (09:47→20:20)
[2021-02-08] MEDS: Budesonide Neb 0.5 MG/2 ML IH SCH ×2 (10:15→22:34)
[2021-02-09] MEDS: Insulin LISPRO 300 UNITS/3 ML VIAL SUBQ SCH ×3 (02:09→11:56)
[2021-02-09 03:18] LABS: Hematocrit 33.2 % (37.5-50.1); Hemoglobin 10.3 g/dL (12.9-16.9); Immature Granulocytes % 0.5 % (0-4); Lymphocytes # 0.9 K/mcL (0.6-4.6); Lymphocytes % 9.1 %; Mean Corpuscular Hemoglobin 28.4 pg (28.0-33.3); Mean Corpuscular Volume 91.5 fL (83.0-100.0); Mean Platelet Volume 11.5 fL (9.4-12.4); Monocytes # 0.7 K/mcL (0.0-1.3); Monocytes % 7.4 %; Neutrophils # 7.7 K/mcL (1.6-8.9); Platelet Count 159 K/mcL (140-400); Red Blood Count 3.63 M/mcL (4.19-5.50); White Blood Count 9.3 K/mcL (4.3-11.1)
[2021-02-09] MEDS: Ipratropium/Albuterol Neb 3 ML IH SCH ×2 (03:43→10:27)
[2021-02-09 03:48] LABS: Calcium 9.3 mg/dL (8.6-10.3); Potassium 4.8 mEq/L (3.5-5.1)
[2021-02-09] MEDS: *HR* Heparin 5,000 UNIT/ML VIAL SQ SCH (05:33)
[2021-02-09] MEDS: Sucralfate 1 GM TABLET PO SCH (09:20)
[2021-02-09] MEDS: Doxycycline 100 MG CAPSULE PO SCH (09:20)
[2021-02-09] MEDS: amLODIPine 5 MG TABLET PO SCH (09:20)
[2021-02-09] MEDS: carvediloL 6.25 MG TABLET PO SCH (09:21)
[2021-02-09] MEDS: methylPREDNISolone 125 MG/2 ML VIAL IVP SCH (09:26)
[2021-02-09] MEDS: Budesonide Neb 0.5 MG/2 ML IH SCH (10:27)
[2021-02-09] MEDS ORDERED: predniSONE 20 MG TABLET PO SCH (11:15)
[2021-02-09 12:01] VITALS: BP 150/70; PULSE 57; O2SAT 94
[2021-02-09 12:03] VITALS: TEMP 98.9
== END 2021-02-09 14:20 | disposition home or self-care (01) | DRG 208 ==
LOC: EMEROOARM 08:10 → SUATTDRO 11:24 → ICNU 11:24 → 3ANU 02-07 20:04
PROVIDERS: ADMIT Family Medicine; ATTEND Internal Medicine